=== PATIENT | male | born 1930 | race Caucasian/White ===

== ENCOUNTER 2017-11-02 08:22 | Day surgery (SDC) | payer MEDICARE, OTHER ==
[2017-10-28 11:37] VITALS: BMI 23.1
--- NOTE | 2017-11-02 05:14 | HP ---
HISTORY AND PHYSICAL CHIEF COMPLAINT: Perforation in the right tympanic membrane. HISTORY OF PRESENT ILLNESS: This patient is a very pleasant 87-year-old male who was seen in my office complaining of drainage from his right ear. The patient states that approximately 1 year prior to coming to my office, he was seen at the [facility]. At that time his ears were irrigated. Since that time, the right ear has been draining intermittently. We have seen this gentleman in the past for a slight perforation of the right tympanic membrane which closed spontaneously without any surgical intervention. He wears bilateral hearing aids. At the time that he was seen in the office, clinical examination of the right ear revealed a central perforation encompassing approximately 10-15% of the right tympanic membrane. The middle ear space was free of any cholesteatoma. The patient was placed on a course of Levaquin and Floxin ear drops in an attempt to see if the perforation would close. After approximately 3 weeks, it was noted that the perforation did not close and therefore it was recommended that the patient undergo a right insertion of a Kartush patch to a right tympanic membrane perforation under IV sedation with MAC. PAST MEDICAL HISTORY: Past medical history reveals that the patient has no known allergies to medications. MEDICATIONS: His current medications include allopurinol, valsartan, Areds, PreserVision, metoprolol, Colcrys, Tekturna and 1 baby aspirin daily. REVIEW OF SYSTEMS: Review of systems reveals cardiovascular system is positive for hypertension. The special symptoms is positive for macular degeneration. The remainder of the review of systems is unremarkable. PHYSICAL EXAMINATION: This patient is a very pleasant 87-year-old male who was alert and cooperative. HEENT examination: Patient is normocephalic. Examination of the left ear reveals a left tympanic membrane middle ear space is free of any fluid, infection or perforation. Examination right ear reveals the patient has a central perforation encompassing approximately 10-15% of the right tympanic membrane. The middle ear ossicles are intact. The middle ear space is dry and free of any infection or cholesteatoma. Pupils equal, round, react to light and accommodation. Extraocular movements within normal limits. Intranasal examination reveals moderate to severe septal deviation with compensatory hypertrophy of the inferior turbinates and a moderate amount of mucus on the mucous membranes and draining down the posterior pharynx. Palpation of the neck, cranial nerves 2 through 12 and the remainder of the head and neck exam is unremarkable. Chest: Cardiovascular: Both lung pelaez are clear to percussion and auscultation. Patient is in regular sinus rhythm. S1, S2 are present without evidence of murmurs, S3s or S4. Peripheral pulses are bilaterally symmetrical and within normal limits. ABDOMEN: There is no evidence of any masses, megaly, or tenderness. ABDOMEN: Soft. Skin is unremarkable. Musculoskeletal and neurological are within normal limits. Rectal examination exam is deferred at this time because the patient has this done on a regular basis at his family physician's office. The remainder of physical exam is unremarkable. IMPRESSION: Perforation of the right tympanic membrane. PLAN: The patient is scheduled to undergo insertion of a Kartush patch to a perforation of the right tympanic membrane under IV sedation with MAC in the a.m. Attention RNs in the pre-surgical area; I have not ordered any pre-surgical prophylactic antibiotics for this patient. If the pharmacy department sends any pre- surgical prophylactic antibiotics for this patient to the pre-surgical area, please return the medication to the pharmacy department and cancel that order and make sure that the patient's account is credited appropriately. I have discussed the risks, benefits and alternative therapies for the above-mentioned procedure and for both sedation/analgesia as well as necessary blood product administration, if indicated, as they pertain to this patient. The patient has indicated his or her understanding and acceptance of the risks and procedures discussed. MMODL / IJN: [id number] /
[~2017-11-02 08:22] MED LIST: LACTATED RINGERS 1,000 ML IV SCH; Pre Op ABX Message 1 EACH MISC MISCELLANE ONE
[2017-11-02 08:55] VITALS: RESP 16; TEMP 97.7
[2017-11-02] MEDS ORDERED: hydrALAZINE HCL 20 MG/ML 1 ML VIAL IVP ONE ×2 (09:02→09:30)
[2017-11-02] MEDS ORDERED: PROPOFOL 10 MG/ML 20 ML VIAL IV ONE (10:11)
[2017-11-02] MEDS ORDERED: fentaNYL (PF) 50 MCG/ML 2 ML AMP ONE (10:11)
[2017-11-02] MEDS ORDERED: OFLOXACIN 0.3% OPHTH DROPS 5 ML BOTTLE RIGHT EAR ONE ×2 (10:37)
[2017-11-02 11:18] VITALS: BP 164/78; PULSE 73
--- NOTE | 2017-11-02 22:48 | OP ---
OPERATIVE REPORT PREOPERATIVE DIAGNOSIS: Perforation of the right tympanic membrane. POSTOPERATIVE DIAGNOSIS: Perforation of the right tympanic membrane. ANESTHESIA: IV sedation with M.A.C. OPERATIVE PROCEDURE: Insertion of a 3 mm Kartush patch to a perforation of the right tympanic membrane. OPERATING SURGEON: Dr. Chacon. COMPLICATIONS: None. ESTIMATED BLOOD LOSS: Zero. OPERATIVE PROCEDURE DESCRIPTION: The patient was placed on the operating table in supine position. After uneventful IV sedation, satisfactory sedation was obtained. Next the patient's right ear was draped in the usual and customary fashion, following which using a #3 aural speculum and the Zeiss operating microscope, the right external auditory canal was cleansed of all wax and debris. Inspection of the right tympanic membrane revealed that it had an anterior perforation encompassing approximately 10% to 15% of the right tympanic membrane. The middle ear space was free of any fluid, infection or cholesteatoma. Therefore it was elected to insert a 3 mm Kartush patch in the usual and customary fashion. Care was taken to make sure that the Kartush patch was seated properly. At this point, the procedure was terminated. There were no intraoperative complications. The patient tolerated the procedure well and was returned to the recovery room in satisfactory condition. MMODL / IJN: [id number] /
== END 2017-11-02 11:35 | disposition home or self-care (01) ==
LOC: OR 08:22
PROVIDERS: ATTEND Otolaryngology
DX: H72.91 Unspecified perforation of tympanic membrane, right ear (principal); J34.2 Deviated nasal septum; J34.3 Hypertrophy of nasal turbinates; H35.30 Unspecified macular degeneration; I10 Essential (primary) hypertension; Z79.82 Long term (current) use of aspirin; Z79.899 Other long term (current) drug therapy
CPT/HCPCS: 69610; J0360; J3010; J2704

== ENCOUNTER 2018-11-26 09:09 | Day surgery (SDC) | payer MEDICARE, OTHER ==
[2018-11-19 15:24] VITALS: BMI 27.3
--- NOTE | 2018-11-25 23:05 | HP ---
HISTORY AND PHYSICAL CHIEF COMPLAINT: Perforation of the right tympanic membrane. HISTORY OF PRESENT ILLNESS: The patient is a very pleasant 88-year-old male who was recently seen in my office complaining of having drainage and decreased hearing in his right ear. The patient had previously undergone insertion of a right Kartush patch to a perforated right tympanic membrane approximately 1 year ago. At that time, he did see me in my office, clinical examination revealed he had purulent drainage coming from the right middle ear space and the patch had completely extruded. The patient was placed on 2 weeks of antibiotic ear drops and upon returning to the office for a checkup, it was noted that the ear was completely dry and it was recommended that the patch be reinserted so as to improve the function of his hearing aid. PAST MEDICAL HISTORY: Past medical history reveals that he has no known allergies. MEDICATIONS: Current medications: Allopurinol, valsartan, and Areds, PreserVision, metoprolol, Colcrys, Tekturna, baby aspirin daily. REVIEW OF SYSTEMS: Review of systems reveals the cardiovascular system is positive for hypertension and ASHD. Special senses is positive for macular degeneration. Musculoskeletal system is positive for gout. Remainder of review of systems is essentially unremarkable. PHYSICAL EXAMINATION: The patient is a very pleasant 88-year-old male who was alert and cooperative. HEENT exam: The patient is normocephalic. Left tympanic membrane is unremarkable. Examination of the right knee reveals patient has a small central perforation encompassing less than 10% of the right tympanic membrane. The middle ear space at this time is dry in the middle ear middle ear ossicles appear to be intact. Pupils equal, round, reactive to light and accommodation. Extraocular movements within normal limits. Intranasal examination reveals moderate to severe septal deviation with compensatory hypertrophy of the inferior turbinates and a moderate amount of mucus on the mucous membranes and draining down the posterior pharyngeal wall. Examination of the oropharynx, cranial nerves 2 through 12 and remainder of the head and neck exam are all within normal limits. Chest cardiovascular. Both lung pelaez are clear to percussion and auscultation. The patient is in regular sinus rhythm. S1 and S2 are present without evidence of any murmurs, S3s or S4s. Peripheral pulses are bilaterally symmetrical and within normal limits. ABDOMEN: There is no evidence of any masses, megaly or tenderness. Abdomen: Soft. Skin is unremarkable. Musculoskeletal and neurological all within normal limits. Rectal examination exam is deferred at this time because the patient has done on a regular basis at his family physician's office. The remainder of physical exam is essentially unremarkable. IMPRESSION: Perforation of the right tympanic membrane. PLAN: The patient is scheduled undergo insertion of a Kartush patch to a perforation of the right tympanic membrane under IV sedation with MAC. Attention RNs in the pre-surgical area: I have not ordered any pre-surgical medications or pre-surgical prophylactic antibiotics for this patient. If the pharmacy department sends any pre-surgical prophylactic antibiotics to the pre-surgical area for this patient, please cancel that order and return the medication to the pharmacy department. Also make sure that the patient's account is account is credited appropriately. I have discussed the risks, benefits and alternative therapies for the above-mentioned procedure and for both sedation/analgesia as well as necessary blood product administration, if indicated, as they pertain to this patient. The patient has indicated his or her understanding and acceptance of the risks and procedures discussed. MMODL / ALETHEAN: [id number] /
[~2018-11-26 09:09] MED LIST changes: +LIDOCAINE 1% 20 ML VIAL (10MG/ML) FOR IV START INTRADERMA PRN
[2018-11-26] MEDS ORDERED: fentaNYL (PF) 50 MCG/ML 2 ML AMP ONE (11:09)
[2018-11-26] MEDS ORDERED: PROPOFOL 10 MG/ML 20 ML VIAL IV ONE (11:09)
[2018-11-26] MEDS ORDERED: OFLOXACIN 0.3% OTIC DROPS 5 ML BTL RIGHT EAR ONE ×2 (11:27)
[2018-11-26 12:02] VITALS: TEMP 97.5
[2018-11-26 12:04] VITALS: RESP 16
[2018-11-26 13:03] VITALS: BP 166/76; PULSE 72
--- NOTE | 2018-11-29 23:16 | OP ---
OPERATIVE REPORT DATE OF SERVICE: 11/27/2018. PREOPERATIVE DIAGNOSIS: Perforation of the right tympanic membrane. POSTOPERATIVE DIAGNOSIS: Perforation of the right tympanic membrane. ANESTHESIA: IV sedation with M.A.C. OPERATIVE PROCEDURE: Insertion of a 5 mm Kartush patch to the perforation of the right tympanic membrane. OPERATING SURGEON: Dr. Chacon. COMPLICATIONS: None. ESTIMATED BLOOD LOSS: Zero. OPERATIVE PROCEDURE: The patient was placed on the operating table in supine position. After uneventful IV sedation, satisfactory sedation was obtained. Next the patient's right ear was draped in usual and customary fashion. Next, using the Zeiss operating microscope and a #4 aural speculum, the right external auditory canal was cleansed of all wax and debris. Inspection of the right tympanic membrane revealed a central perforation encompassing approximately 3 to 4 mm in diameter. Because a previously inserted 3 mm Kartush patch which seated exactly, had been easily extruded, it was elected to at this time insert a 5 mm Kartush patch. Therefore using a pair of alligator forceps, annulus elevator and a Gudino needle, the Kartush patch was inserted into the perforation and was carefully worked into the perforation so as to be well-seated around all of the edges. Care was taken to inspect the area after placement of the Kartush patch to make sure that it was well seated. At this point the procedure was terminated. There were no intraoperative complications. The patient tolerated the procedure well and was returned to the recovery room in satisfactory condition. MMTHOMASL / IJN: [id number] /
== END 2018-11-26 13:20 | disposition home or self-care (01) ==
LOC: OR 09:09
PROVIDERS: ATTEND Otolaryngology
DX: H72.91 Unspecified perforation of tympanic membrane, right ear (principal); I25.10 Atherosclerotic heart disease of native coronary artery without angina pectoris; I10 Essential (primary) hypertension; H35.30 Unspecified macular degeneration; M10.9 Gout, unspecified; E78.5 Hyperlipidemia, unspecified; Z87.891 Personal history of nicotine dependence; Z85.828 Personal history of other malignant neoplasm of skin; Z79.82 Long term (current) use of aspirin; Z79.899 Other long term (current) drug therapy
CPT/HCPCS: 69610; J3010; J2704

== ENCOUNTER → 2019-04-27 | Outpatient (CLI) | payer MEDICARE, OTHER ==
--- NOTE | 2019-04-28 00:34 | MR ---
EXAMINATION TYPE: MR lumbar spine wo con DATE OF EXAM: 04/27/2019 COMPARISON: 06/11/2011 HISTORY: Radiculopathy, lumbar region TECHNIQUE: Multiplanar, multisequence images of the lumbar spine were acquired. Lumbar vertebra have normal alignment. There is some degenerative disc space narrowing throughout the lumbar spine and more noticeable at L2-3 L4-5 and L5-S1. There is no compression fracture. I see no focal bone destruction. There is mild hypertrophic multilevel facet arthropathy. There is some ankylo tic change in the sacroiliac joints. There is no lumbar paraspinal mass. There are multiple cortical cysts in the left kidney. There is mild neural foraminal narrowing due to the disc space narrowing an d facet arthropathy. There is no spinal stenosis. Posterior elements appear intact. IMPRESSION: Mild multilevel spondylotic changes. No fracture. 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 No spin al stenosis. No fracture. No significant change compared to old exam.
== END | disposition home or self-care (01) ==
LOC: RADMRIMAIN 19:25
PROVIDERS: ATTEND Family Medicine
DX: M47.26 Other spondylosis with radiculopathy, lumbar region (principal)
CPT/HCPCS: 72148

== ENCOUNTER 2019-09-25 12:18 | Observation (INO) | payer MEDICARE, OTHER ==
[2019-09-25] MEDS ORDERED: ASPIRIN 81 MG PO STA (13:17)
[2019-09-25] MEDS ORDERED: NITROGLYCERIN OINT 1 INCH/GM PACKET TOPICAL STA (13:17)
--- NOTE | 2019-09-25 13:24 | ED ---
Chest Pain HPI - General Chief Complaint: Chest Pain Stated Complaint: Chest pain/tightness Time Seen by Provider: 09/25/19 12:24 Source: patient, family, RN notes reviewed Mode of arrival: wheelchair Limitations: no limitations - History of Present Illness Initial Comments: This 88-year-old male. He states he had the onset of some chest pain yesterday and resolved but this morning he woke up with more chest pain and tightness. Is also some pain up into his left neck. He also shortness of breath he states the pain was partially 4-5/10 severity. He has had some increased pain with deep breathing and left-sided of his chest. No fevers chills nausea vomiting sweats or other symptoms MD Complaint: chest pain - Related Data Home Medications Medication Instructions Recorded Confirmed Allopurinol [Zyloprim] 300 mg PO DAILY 10/28/17 11/26/18 Aspirin 81 mg PO DAILY 10/28/17 11/26/18 Ergocalciferol (Vitamin D2) 50,000 unit PO Q7D 10/28/17 11/26/18 [Vitamin D2] Gemfibrozil [Lopid] 600 mg PO DAILY 10/28/17 11/26/18 Metoprolol Tartrate [Lopressor] 100 mg PO BID 10/28/17 11/26/18 Vitamin B Complex 1 each PO DAILY 10/28/17 11/26/18 Aliskiren Hemifumarate [Tekturna] 150 mg PO HS 11/19/18 11/26/18 Olmesartan Medoxomil 20 mg PO DAILY 11/19/18 11/26/18 Vit C/E/Zn/Coppr/Lutein/Zeaxan 1 each PO BID 11/19/18 11/26/18 [Preservision Areds 2 Softgel] amLODIPine BESYLATE [Norvasc] 10 mg PO HS 11/19/18 11/26/18 Allergies Allergy/AdvReac Type Severity Reaction Status Date / Time No Known Allergies Allergy Verified 09/25/19 12:22 Review of Systems ROS Statement: Those systems with pertinent positive or pertinent negative responses have been documented in the HPI. ROS Other: All systems not noted in ROS Statement are negative. EKG Findings - EKG Results: EKG: interpreted by GINETTE, sinus rhythm (Normal sinus rhythm a 73. Interval 174 QRS duration 96 QT since QTC 370/[address]-T wave changes) Past Medical History Past Medical History: Cancer, Eye Disorder, Hypertension, Osteoarthritis (OA), Prostate Disorder Additional Past Medical History / Comment(s): Contracted L hand,(dupuytren's contracture) Gout, Macular Degeneration, hx. skin cancer on his face, inner ear infections. History of Any Multi-Drug Resistant Organisms: None Reported Past Surgical History: Bowel Resection, Heart Catheterization, Hernia Repair, Orthopedic Surgery, Prostate Surgery Additional Past Surgical History / Comment(s): rt hand surgery. rt ear patch 2018, mult hernia's Past Anesthesia/Blood Transfusion Reactions: No Reported Reaction Past Psychological History: No Psychological Hx Reported Smoking Status: Former smoker - Past Family History Father Family Medical History: Cancer Additional Family Medical History / Comment(s): Lung General Exam - General Exam Comments Initial Comments: This a well-developed develop appearing male who is awake alert oriented 3 Limitations: no limitations General appearance: alert, in no apparent distress Head exam: Present: atraumatic, normocephalic, normal inspection Eye exam: Present: normal appearance, PERRL, EOMI. Absent: scleral icterus, conjunctival injection, periorbital swelling ENT exam: Present: normal exam, mucous membranes moist Neck exam: Present: normal inspection, tenderness, full ROM (Mild tenderness palpation on the left lateral neckpulsatile masses or JVD or bruits). Absent: meningismus, lymphadenopathy Respiratory exam: Present: normal lung sounds bilaterally, chest wall tenderness (Is a left lower costal chondral margin). Absent: respiratory distress, wheezes, rales, rhonchi, stridor Cardiovascular Exam: Present: regular rate, normal rhythm, normal heart sounds. Absent: systolic murmur, diastolic murmur, rubs, gallop, clicks GI/Abdominal exam: Present: soft, normal bowel sounds. Absent: distended, tenderness, guarding, rebound, rigid Extremities exam: Present: normal inspection, full ROM, normal capillary refill. Absent: tenderness, pedal edema, joint swelling, calf tenderness Back exam: Present: normal inspection Neurological exam: Present: alert, oriented X3, CN II-XII intact Psychiatric exam: Present: normal affect, normal mood Skin exam: Present: warm, dry, intact, normal color. Absent: rash Course Vital Signs 09/25/19 09/25/1920 12:22 13:00 14:00 Temperature 97.4 F L Pulse Rate 80 70 65 Respiratory 16 15 15 Rate Blood Pressure 153/85 132/74 138/71 O2 Sat by Pulse 95 94 L 94 L Oximetry 09/25/19 09/25/19 15:00 15:25 Temperature Pulse Rate 74 74 Respiratory 17 17 Rate Blood Pressure 136/75 136/75 O2 Sat by Pulse Oximetry - Reevaluation(s) Reevaluation #1: 09/25/19 15:39 Reevaluation the patient to the application of Nitropaste reveals a pain-free situation at this time. Chest Pain MDM - MDM Imaging shows no evidence of acute findings. I did discuss findings with patient family as well as with Dr. Vaz who is covering Dr. Guevara patient will be admitted with cardiology consultation presentation is consistent with unstable angina Critical Care Time Critical Care Time: Yes Critical Care Time: 31 minutes of critical care time which includes initial presentation with history physical labs x-rays multiple reevaluation the patient response to therapy discussed with patient family review of old charting Disposition Clinical Impression: Unstable angina pectoris, Chest pain Disposition: ADMITTED IP TO THIS [facility] Condition: Fair Referrals: Trent Armando MD [Primary Care Provider] - 1-2 days
[2019-09-25 13:34] LABS: Basophils # (A) 0.1 k/uL (0-0.2); Basophils % (A) 1 %; Eosinophils # (A) 0.1 k/uL (0-0.7); Eosinophils % (A) 1 %; HCT 53.9 % (39.0-53.0); HGB 17.3 gm/dL (13.0-17.5); Lymphocytes # (A) 1.2 k/uL (1.0-4.8); Lymphocytes % (A) 17 %; MCH 29.3 pg (25.0-35.0); MCHC 32.2 g/dL (31.0-37.0); MCV 91.1 fL (80.0-100.0); Mean Platelet Volume 8.1; Monocytes # (A) 0.4 k/uL (0-1.0); Monocytes % (A) 5 %; Neutrophils # (A) 5.4 k/uL (1.3-7.7); Neutrophils % (A) 75 %; Platelet Count 242 k/uL (150-450); RBC 5.91 m/uL (4.30-5.90); RDW 13.7 % (11.5-15.5); WBC 7.2 k/uL (3.8-10.6)
--- NOTE | 2019-09-25 13:36 | XR ---
EXAMINATION TYPE: XR chest 2V DATE OF EXAM: 09/25/2019 HISTORY: Chest Pain. REFERENCE: NONE. FINDINGS: There is left basilar airspace disease either representing atelectasis or IMPRESSION:
[2019-09-25 13:40] LABS: Albumin 4.4 g/dL (3.5-5.0); Calcium 10.2 mg/dL (8.4-10.2); Magnesium 2.2 mg/dL (1.6-2.3); Potassium 4.6 mmol/L (3.5-5.1); Total Bilirubin 0.8 mg/dL (0.2-1.3); Total Protein 7.2 g/dL (6.3-8.2)
[2019-09-25 13:46] LABS: D-Dimer 0.41 mg/L FEU (<0.60); Partial Thromboplastin Time 24.6 sec (22.0-30.0); Prothrombin Time 10.2 sec (9.0-12.0)
[2019-09-25] MEDS ORDERED: HEPARIN SODIUM,PORCINE 5,000 UNIT/ML 1 ML VIAL IV ONE (15:42)
[2019-09-25] MEDS ORDERED: NITROGLYCERIN SL TABS 0.4 MG TAB SUBLINGUAL PRN (15:42)
[2019-09-25] MEDS ORDERED: SODIUM CHLORIDE 0.9% 1,000 ML IV SCH (15:45)
[2019-09-25] MEDS ORDERED: HEPARIN SOD,PORK IN 0.45% NACL 25,000 UNIT in 0.45% NACL 1 250ML.BAG IV SCH (15:45)
[2019-09-25] MEDS ORDERED: FLUTICASONE 50MCG/SPRAY NASAL 16GM EA NOSTRIL PRN (18:17)
[2019-09-25] MEDS ORDERED: ACETAMINOPHEN TAB 325 MG TAB PO STA (20:07)
[2019-09-25] MEDS: VIT A,C & E-LUTEIN-MINERALS 1 EACH TAB PO SCH (20:44)
[2019-09-25] MEDS: METOPROLOL TARTRATE 50 MG TAB PO SCH (20:44)
[2019-09-25] MEDS: NITROGLYCERIN OINT 1 INCH/GM PACKET TOPICAL SCH (20:46)
[2019-09-25] MEDS ORDERED: amLODIPine 10 MG TAB PO SCH (21:00)
[2019-09-25 22:55] LABS: Appearance,Urine Clear (Clear); Bilirubin,Urine Negative (Negative); Blood,Urine Negative (Negative); Color,Urine Yellow; Glucose,Urine (UA) Negative (Negative); Ketones,Urine Negative (Negative); Leukocyte Esterase,Urine Negative (Negative); Nitrite,Urine Negative (Negative); PH, Urine 5.5 (5.0-8.0); Protein,Urine Trace (Negative); Specific Gravity,Urine 1.016 (1.001-1.035); Urobilinogen,Urine <2.0 mg/dL (<2.0)
[2019-09-26] MEDS: NITROGLYCERIN OINT 1 INCH/GM PACKET TOPICAL SCH ×2 (01:26→05:31)
--- NOTE | 2019-09-26 07:57 | HP ---
HISTORY AND PHYSICAL DATE OF SERVICE: 10/15/2019 CHIEF COMPLAINT: Chest pain. HISTORY OF PRESENT ILLNESS: This is an 88-year-old gentleman with a past medical history of multiple medical problems including hypertension, history of DJD, history of prostate disorder, history of bowel resection, being followed by Antoni Bagley in the outpatient setting, is complaining of chest pain. The patient had chest pain, antepartum chest pain yesterday, but patient pained resolved. This morning patient woke up again, the pain was felt as a tightness in the middle of the chest which radiated to the left neck and the back. The patient also has some associated cough also. The patient is not feeling well and because of multiple complaints, patient came to [facility], admitted for further evaluation and treatment. There is no history of fever, chills, or rigors. No history of headache, loss of consciousness, seizures at this time. PAST MEDICAL HISTORY: History of hypertension, history of DJD, history of prostate disorder, history of Dupuytren's contracture, history of bowel resection, history of cardiac catheterization. MEDICATIONS: 1. Benadryl 25 mg p.o. q.h.s. 2. Norvasc 10 mg p.o. q.h.s. 3. Vitamin B complex 1 p.o. q.h.s. 4. Vitamin C zinc copper lutein 1 p.o. b.i.d. 5. Lopressor 100 mg p.o. b.i.d. 6. Claritin 10 mg p.o. daily. 7. Lopid 600 mg p.o. daily. 8. Flonase 2 sprays daily p.r.n. 9. Vitamin D2 fifty thousand p.o. Thursday. 10.Aspirin 81 mg q.h.s. 11.Zyloprim 300 mg p.o. daily. 12.Tekturna 150 mg q.h.s. ALLERGIES: None. FAMILY HISTORY: History of lung cancer in the family. SOCIAL HISTORY: Previous history of smoking. No history of current smoking or alcohol intake. REVIEW OF SYSTEMS: ENT: Diminished vision. Diminished hearing. CARDIOVASCULAR SYSTEM: As mentioned earlier. RESPIRATORY: As mentioned earlier. GI: No nausea. : No dysuria. NERVOUS SYSTEM: No numbness or weakness. ALLERGY/IMMUNOLOGY: No asthma or hay fever. MUSCULOSKELETAL: As mentioned earlier. HEMATOLOGY: No history of anemia. ENDOCRINE: No history of diabetes or hypothyroidism. CONSTITUTIONAL: As mentioned earlier. DERMATOLOGY: Negative. RHEUMATOLOGY: Negative. PSYCHIATRY: As mentioned earlier. PHYSICAL EXAM: Patient is alert, oriented x3. The pulse is 80, blood pressure 130/86, respiration 18, temperature 97.2, pulse ox 95% on 2 L. HEENT: Conjunctivae normal. NECK: No jugular venous distension. CARDIOVASCULAR SYSTEM: S1, S2, muffled. RESPIRATORY: Breath sounds diminished at the bases, a few scattered rhonchi, no crackles. ABDOMEN: Soft, nontender. No mass palpable. LEGS: No edema, no swelling. NERVOUS SYSTEM: Higher functions as mentioned earlier. Moves all 4 limbs. No focal motor deficits. LYMPHATICS: No lymph node enlargement in the neck or axillae. SKIN: No ulcers, bleeding. JOINT: No active deforming arthropathy. LABS: WBC is 1.8, hemoglobin 17.3. PT, INR, and PTT is normal. Sodium 140, potassium 4.2, glucose 125, alkaline phosphatase 150. ASSESSMENT: 1. Chest pain, possible unstable angina, possibly pleuritic. 2. Hypertension. 3. History of degenerative joint disease. 4. History of Dupuytren's contracture. 5. History of gout. 6. Macular degeneration. 7. History of cardiac catheterization. 8. Remote history of nicotine dependence. RECOMMENDATION: In this 88-year-old gentleman who presented with multiple complex medical issues, will monitor the patient closely. Continue with the current management and resume the home medications, otherwise symptomatic treatment. Rule out myocardial infarction. Cardiology consultation, possible stress test. If the troponins are negative and further recommendations to follow, The EKG which was done, reviewed personally by me showed no acute changes. Further recommendations to follow. MMODL / IJN: [id number] /
[2019-09-26 08:25] LABS: Basophils % (A) 1 %; Eosinophils # (A) 0.1 k/uL (0-0.7); Eosinophils % (A) 2 %; HCT 49.2 % (39.0-53.0); HGB 15.6 gm/dL (13.0-17.5); Lymphocytes % (A) 28 %; MCH 28.6 pg (25.0-35.0); MCHC 31.7 g/dL (31.0-37.0); MCV 90.4 fL (80.0-100.0); Monocytes # (A) 0.3 k/uL (0-1.0); Monocytes % (A) 4 %; Neutrophils # (A) 4.7 k/uL (1.3-7.7); Neutrophils % (A) 64 %; Platelet Count 212 k/uL (150-450); RBC 5.45 m/uL (4.30-5.90); RDW 13.6 % (11.5-15.5); WBC 7.3 k/uL (3.8-10.6)
[2019-09-26] MEDS ORDERED: AMINOPHYLLINE 500 MG/20 ML VIAL IV PRN (08:26)
[2019-09-26] MEDS ORDERED: CAFFEINE CITRATE 60 MG/3 ML VIAL IV PRN (08:26)
[2019-09-26] MEDS ORDERED: DIPYRIDAMOLE IV ONE (08:30)
[2019-09-26] MEDS ORDERED: SODIUM CHLORIDE 0.9% IV ONE (08:30)
--- NOTE | 2019-09-26 08:59 | P.CRDCN ---
History of Present Illness History of present illness: HISTORY OF PRESENTING ILLNESS This is a pleasant 88-year-old male past medical history significant for hypertension, osteoarthritis, history of bowel resection in the past and macular degeneration. He is also extremely hard of hearing. He denies prior history of coronary artery disease does not follow in the office with a tobacco prizer. We have been asked to see in consultation for chest pain. He states he was up most of the night on Thursday with a dry persistent cough. He woke up Thursday with a heavy pressure sensation in the upper anterior chest wall. The discomfort did not radiate through to the back, down the arms, into the neck or the jaw. Was not associated with shortness of breath, dizziness, nausea, vomiting, diaphoresis or palpitations. The cough did not precipitate chest pain. His symptoms lasted for about 45 minutes on Thursday morning and slowly subsided on their own. He has had no recurrence of chest pain. The patient states approximately 8-10 years ago and bad ax he underwent cardiac catheterization prior to bowel resection surgery. Per the patient his study was normal and required no stenting. DIAGNOSTICS EKG reveals sinus mechanism with no acute ST or T wave abnormalities noted. Chest xray left basilar airspace disease. Laboratory reviewed, CBC unremarkable, troponin negative 3, d-dimer 0.41, sodium 140, potassium 4.6, creatinine 0.93, alkaline phosphate 150. Current cardiac medications include aspirin 81 mg daily, Lopid 600 mg daily, Lopressor 100 mg twice a day and amlodipine 10 mg at bedtime. REVIEW OF SYSTEMS At the time of my exam: CONSTITUTIONAL: Denies fever or chills. CARDIOVASCULAR: Denies chest pain, shortness of breath, orthopnea, PND or palpitations. RESPIRATORY: Denies cough. GASTROINTESTINAL: Denies abdominal pain, diarrhea, constipation, nausea or vomiting. MUSCULOSKELETAL: Denies myalgias. NEUROLOGIC: Denies numbness, tingling or weakness. ENDOCRINE: Denies fatigue, weight change, polydipsia or polyurina. GENITOURINARY: Denies burning, hematuria or urgency with micturation. HEMATOLOGIC: Denies history of anemia or bleeding. PHYSICAL EXAMINATION Blood pressure 150/66 heart rate 84 afebrile and maintaining oxygen saturation on male. CONSTITUTIONAL: No apparent distress. HEENT: Head is normocephalic. Pupils are equal, round. Sclerae anicteric. Mucous membranes of the mouth are moist. No JVD. No carotid bruit. CHEST EXAMINATION: Lungs are clear to auscultation. No chest wall tenderness is noted on palpation or with deep breathing. HEART EXAMINATION: Regular rate and rhythm. S1, S2 heard. Systolic ejection murmur at the left sternal border, no gallops or rub. ABDOMEN: Soft, nontender. Positive bowel sounds. EXTREMITIES: 2+ peripheral pulses, no lower extremity edema and no calf tenderness. NEUROLOGIC EXAMINATION: Patient is awake, alert and oriented x3. ASSESSMENT Chest pain, atypical. An acute coronary event has been ruled out. Hypertension PLAN An acute coronary event has been ruled out. Discontinue heparin infusion. Obtain 2-D echocardiogram and Doppler study to assess cardiac structure and function. Perform Persantine stress test to assess for reversible cardiac ischemia. Continue Lopressor, aspirin, amlodipine and losartan for control of blood pres sure. Thank you kindly for this consultation. Nurse Practitioner note has been reviewed, I agree with a documented findings and plan of care. Patient was seen and examined. Past Medical History Past Medical History: Cancer, Eye Disorder, Hypertension, Osteoarthritis (OA), Prostate Disorder Additional Past Medical History / Comment(s): Contracted L hand,(dupuytren's contracture) Gout, Macular Degeneration, hx. skin cancer on his face, inner ear infections. History of Any Multi-Drug Resistant Organisms: None Reported Past Surgical History: Bowel Resection, Heart Catheterization, Hernia Repair, Orthopedic Surgery, Prostate Surgery Additional Past Surgical History / Comment(s): rt hand surgery. rt ear patch 2018, mult hernia's Past Anesthesia/Blood Transfusion Reactions: No Reported Reaction Past Psychological History: No Psychological Hx Reported Smoking Status: Former smoker Past Alcohol Use History: None Reported Additional Past Alcohol Use History / Comment(s): Quit smoking 30 years ago. Past Drug Use History: None Reported - Past Family History Father Family Medical History: Cancer Additional Family Medical History / Comment(s): Lung Medications and Allergies Home Medications Medication Instructions Recorded Confirmed Type Allopurinol [Zyloprim] 300 mg PO DAILY 10/28/17 09/25/19 History Aspirin 81 mg PO HS 10/28/17 09/25/19 History Ergocalciferol (Vitamin D2) 50,000 unit PO SA 10/28/17 09/25/19 History [Vitamin D2] Gemfibrozil [Lopid] 600 mg PO DAILY 10/28/17 09/25/19 History Metoprolol Tartrate [Lopressor] 100 mg PO BID 10/28/17 09/25/19 History Vitamin B Complex 1 cap PO HS 10/28/17 09/25/19 History Aliskiren Hemifumarate [Tekturna] 150 mg PO HS 11/19/18 09/25/19 History Vit C/E/Zn/Coppr/Lutein/Zeaxan 1 cap PO BID 11/19/18 09/25/19 History [Preservision Areds 2 Softgel] amLODIPine BESYLATE [Norvasc] 10 mg PO HS 11/19/18 09/25/19 History Fluticasone Nasal [place] [Flonase 2 sprays EA NOSTRIL DAILY PRN 09/25/19 09/25/19 History Nasal [place]] Loratadine [Claritin] 10 mg PO DAILY 09/25/19 09/25/19 History diphenhydrAMINE HCL [Benadryl] 25 mg PO HS 09/25/19 09/25/19 History Allergies Allergy/AdvReac Type Severity Reaction Status Date / Time No Known Allergies Allergy Verified 09/25/19 15:54 Physical Exam Vitals: Vital Signs Temp Pulse Pulse Pulse Resp BP BP 09/26/19 07:00 97.8 F 84 17 09/26/19 06:54 09/26/19 04:00 97.9 F 69 16 138/76 09/25/19 23:48 98.1 F 69 17 131/66 09/25/19 23:35 18 09/25/19 19:45 94 16 09/25/19 19:26 97.9 F 94 16 152/80 09/25/19 17:49 97.2 F L 90 16 154/78 09/25/19 16:57 80 18 138/86 09/25/19 16:00 73 20 142/74 09/25/19 15:25 74 17 136/75 09/25/19 15:00 74 17 136/75 09/25/19 14:00 65 15 138/71 09/25/19 13:00 70 15 132/74 09/25/19 12:22 97.4 F L 80 16 153/85 BP Pulse Ox 09/26/19 07:00 150/66 93 L 09/26/19 06:54 93 L 09/26/19 04:00 97 09/25/19 23:48 99 09/25/19 23:35 09/25/19 19:45 09/25/19 19:26 97 09/25/19 17:49 94 L 09/25/19 16:57 2 L 09/25/19 16:00 09/25/19 15:25 09/25/19 15:00 09/25/19 14:00 94 L 09/25/19 13:00 94 L 09/25/19 12:22 95 Intake and Output 09/25/19 09/26/19 09/26/19 22:59 06:59 14:59 Intake Total 960 Output Total 600 Balance 960 -600 Intake: Oral 960 Output: Urine 600 Other: Voiding Method Toilet Toilet Toilet # Voids 1 1 Weight 70.307 kg 67.9 kg Results 09/26/19 07:30 09/25/19 12:38 Cardiac Enzymes 09/25/19 09/25/19 09/25/19 Range/Units 12:38 12:38 18:51 AST 33 (17-59) U/L Troponin I <0.012 <0.012 (0.000-0.034) ng/mL 09/26/19 Range/Units 00:43 AST (17-59) U/L Troponin I <0.012 (0.000-0.034) ng/mL Coagulation 09/25/19 09/25/19 09/26/19 Range/Units 12:38 22:22 07:30 PT 10.2 (9.0-12.0) sec APTT 24.6 61.0 H 77.1 H (22.0-30.0) sec CBC 09/25/19 09/26/19 Range/Units 12:38 07:30 WBC 7.2 7.3 (3.8-10.6) k/uL RBC 5.91 H 5.45 (4.30-5.90) m/uL Hgb 17.3 15.6 (13.0-17.5) gm/dL Hct 53.9 H 49.2 (39.0-53.0) % Plt Count 242 212 (150-450) k/uL Comprehensive Metabolic Panel 09/25/19 Range/Units 12:38 Sodium 140 (137-145) mmol/L Potassium 4.6 (3.5-5.1) mmol/L Chloride 105 (98-107) mmol/L Carbon Dioxide 25 (22-30) mmol/L BUN 15 (9-20) mg/dL Creatinine 0.93 (0.66-1.25) mg/dL Glucose 125 H (74-99) mg/dL Calcium 10.2 (8.4-10.2) mg/dL AST 33 (17-59) U/L ALT 20 (4-49) U/L Alkaline Phosphatase 150 H (38-126) U/L Total Protein 7.2 (6.3-8.2) g/dL Albumin 4.4 (3.5-5.0) g/dL Current Medications Generic Name Dose Route Start Last Admin Trade Name Freq PRN Reason Stop Dose Admin Allopurinol 300 mg 09/26/19 09:00 Zyloprim PO DAILY [facility] Aminophylline 100 mg 09/26/19 08:26 Aminophylline IV 09/27/19 08:27 ONCE PRN Patient Response Amlodipine Besylate 10 mg 09/25/19 21:00 09/25/19 20:44 Norvasc PO 10 mg HS LJ Administration Aspirin 81 mg 09/26/19 09:00 Aspirin PO DAILY [facility] Caffeine Citrate 60 mg 09/26/19 08:26 Cafcit Inj IV 09/27/19 08:27 ONCE PRN Patient Response Fenofibrate 160 mg 09/26/19 09:00 Lofibra PO DAILY [facility] Fluticasone Propionate 2 spray 09/25/19 18:17 Flonase Nasal [place] EA NOSTRIL DAILY PRN Allergy Symptoms Sodium Chloride 1,000 mls @ 20 mls/hr 09/25/19 15:45 09/25/19 16:46 Saline 0.9% IV 20 mls/hr .Q24H LJ Administration Loratadine 10 mg 09/26/19 09:00 Claritin PO DAILY [facility] Losartan Potassium 100 mg 09/26/19 09:00 Cozaar PO DAILY [facility] Metoprolol Tartrate 100 mg 09/25/19 21:00 09/25/19 20:44 Lopressor PO 100 mg BID LJ Administration Multivitamins/Minerals 1 each 09/25/19 21:00 09/25/19 20:44 Ivite PO 1 each BID LJ Administration Nitroglycerin 0.4 mg 09/25/19 15:42 Nitrostat SUBLINGUAL Q5M PRN Chest Pain Aliskiren 150 mg 09/25/19 21:00 09/25/19 22:14 Hemifumarate [ PO Not Given Tekturna] 150 Mg HS LJ Intake and Output 09/25/19 09/26/19 09/26/19 22:59 06:59 14:59 Intake Total 960 Output Total 600 Balance 960 -600 Intake: Oral 960 Output: Urine 600 Other: Voiding Method Toilet Toilet Toilet # Voids 1 1 Weight 70.307 kg 67.9 kg 09/26/19 07:30 09/25/19 12:38
[2019-09-26] MEDS ORDERED: ASPIRIN 325 MG TAB PO SCH (09:00)
[2019-09-26] MEDS ORDERED: ASPIRIN 81 MG PO SCH (09:00)
[2019-09-26] MEDS ORDERED: FENOFIBRATE 160 MG TAB PO SCH (09:00)
[2019-09-26] MEDS ORDERED: LORATADINE 10 MG TAB PO SCH (09:00)
[2019-09-26] MEDS ORDERED: LOSARTAN 50 MG TAB PO SCH (09:00)
[2019-09-26] MEDS ORDERED: ALLOPURINOL 300 MG TAB PO SCH (09:00)
[2019-09-26] MEDS: VIT A,C & E-LUTEIN-MINERALS 1 EACH TAB PO SCH (09:13)
[2019-09-26 09:47] LABS: Calcium 9.5 mg/dL (8.4-10.2); Potassium 4.1 mmol/L (3.5-5.1)
[2019-09-26] MEDS: METOPROLOL TARTRATE 50 MG TAB PO SCH (12:53)
[2019-09-26 12:59] VITALS: BP 164/79; PULSE 104; RESP 18; TEMP 97.4
--- NOTE | 2019-09-26 13:25 | NM ---
EXAMINATION TYPE: NM stress persantine cardiolit DATE OF EXAM: 09/26/2019 COMPARISON: NONE HISTORY: Chest pain TECHNIQUE: After the intravenous administration of 9.4 mCi Tc 99m Sestamibi - Cardiolite resting SPE CT images acquired 55 minutes post injection. The patient received 39 mg Persantine, 27.2 mCi Tc 99m Sestamibi - Stress images obtained 45 minutes post injection FINDINGS: Review of stress and rest SPECT images demonstrates no distinct perfusion abnormality. Gated analysi s shows normal wall motion with an estimated left ventricular ejection fraction of 74 %. IMPRESSION: No scintigraphic evidence for reversible ischemia.
--- NOTE | 2019-09-26 14:46 | P.DS ---
Providers Date of admission: 09/25/19 15:42 Expected date of discharge: 09/26/19 Attending physician: Trent Armando MD Consults: 09/25/19 15:42 Consult Physician Urgent Consulting Provider: Glenny Burkett Consult Reason/Comments: Chest pain Do you want consulting provider notified?: Yes Primary care physician: Trent Armando MD Hospital Course: Final diagnoses Chest pain, atypical. Acute coronary event ruled out as per cardiology. Hypertension Macular degeneration Former nicotine dependence OA Hospital course this is a 80-year-old gentleman admitted with chest pain and multiple other medical issues. Evaluated by cardiology, underwent Persantine stress test- verbally reported as negative. Cleared by cardiology for discharge. Patient is being discharged home in stable condition with guarded prognosis. EXAM: GEN: A&OX3,NAD CV reg S1,S2, Sys. [place] LUNGS: CTA NEURO:NO neuro def. The impression and plan of care has been dictated as directed. : I performed a history and examination of this patient, discussed the same with the dictator. I agree with the dictator's note ,documented as a scribe. Any additional findings or plans will be noted. Patient Condition at Discharge: Stable Plan - Discharge Summary New Discharge Prescriptions: New Losartan [Cozaar] 100 mg PO DAILY tab Continue Metoprolol Tartrate [Lopressor] 100 mg PO BID Aspirin 81 mg PO HS Gemfibrozil [Lopid] 600 mg PO DAILY Allopurinol [Zyloprim] 300 mg PO DAILY Vitamin B Complex 1 cap PO HS Ergocalciferol (Vitamin D2) [Vitamin D2] 50,000 unit PO SA Alisk[place]ren Hemifumarate [Tekturna] 150 mg PO HS amLODIPine BESYLATE [Norvasc] 10 mg PO HS Vit C/E/Zn/Coppr/Lutein/Zeaxan [Preservision Areds 2 Softgel] 1 cap PO BID diphenhydrAMINE HCL [Benadryl] 25 mg PO HS Fluticasone Nasal [place] [Flonase Nasal [place]] 2 sprays EA NOSTRIL DAILY PRN PRN Reason: Allergy Symptoms Loratadine [Claritin] 10 mg PO DAILY Discharge Medication List Allopurinol [Zyloprim] 300 mg PO DAILY 10/28/17 [History] Aspirin 81 mg PO HS 10/28/17 [History] Ergocalciferol (Vitamin D2) [Vitamin D2] 50,000 unit PO SA 10/28/17 [History] Gemfibrozil [Lopid] 600 mg PO DAILY 10/28/17 [History] Metoprolol Tartrate [Lopressor] 100 mg PO BID 10/28/17 [History] Vitamin B Complex 1 cap PO HS 10/28/17 [History] Aliskiren Hemifumarate [Tekturna] 150 mg PO HS 11/19/18 [History] Vit C/E/Zn/Coppr/Lutein/Zeaxan [Preservision Areds 2 Softgel] 1 cap PO BID 11/19/18 [History] amLODIPine BESYLATE [Norvasc] 10 mg PO HS 11/19/18 [History] Fluticasone Nasal [place] [Flonase Nasal [place]] 2 sprays EA NOSTRIL DAILY PRN 09/25/19 [History] Loratadine [Claritin] 10 mg PO DAILY 09/25/19 [History] diphenhydrAMINE HCL [Benadryl] 25 mg PO HS 09/25/19 [History] Losartan [Cozaar] 100 mg PO DAILY tab 09/26/19 [Rx] Follow up Appointment(s)/Referral(s): Citlaly Savage MD [STAFF PHYSICIAN] - 2 Weeks Trent Armando MD [Primary Care Provider] - 1-2 days
--- NOTE | 2019-09-27 10:31 | EST ---
EXERCISE STRESS AGE: 89 SEX: M PROTOCOL: Persantine Stress Test HEART RATE REST: 91 BLOOD PRESSURE REST: 157/70 MAXIMUM HEART RATE ACHIEVED: 100 MAXIMUM BLOOD PRESSURE: 160/65 CLINICAL INFORMATION: Persantine stress test baseline EKG revealed normal sinus rhythm without significant ST changes. With Persantine administration, heart rate changed from 91 to I 100 beats per minute blood pressure changed from 157/70 to 160/64. EKG remained unremarkable. Patient did not have any major significant symptoms. By EKG criteria, this is unremarkable Lexiscan stress test. The nuclear scan results which are more pertinent will be reported by the radiologist. MMODL / IJN: [id number] /
--- NOTE | 2019-09-30 08:18 | ECHOF ---
Referral Reason: MEASUREMENTS -------- HEIGHT: 142.2 cm WEIGHT: 67.6 kg BP: 150/66 RVIDd: 2.7 cm (< 3.3) IVSd: 1.5 cm (0.6 - 1.1) LVIDd: 3.3 cm (3.9 - 5.3) LVPWd: 1.5 cm (0.6 - 1.1) IVSs: 1.9 cm LVIDs: 1.7 cm LVPWs: 1.7 cm LAESV Index (A-L): 28.46 ml/m Ao Diam: 2.5 cm (2.0 - 3.7) AV Cusp: 1.2 cm (1.5 - 2.6) LA Diam: 4.0 cm (2.7 - 3.8) MV EXCURSION: 11.243 mm (> 18.000) MV EF SLOPE: 46 mm/s (70 - 150) EPSS: 0.5 cm MV E Casa: 0.73 m/s MV DecT: 166 ms MV A Casa: 1.19 m/s MV E/A Ratio: 0.61 AR PHT: 365 ms RAP: 5.00 mmHg RVSP: 41.00 mmHg FINDINGS -------- Sinus rhythm. This was a technically adequate study. The left ventricular size is normal. There is moderate concentric left ventricular hypertrophy. O verall left ventricular systolic function is normal with, an EF between 55 - 60 %. The diastolic fi lling pattern is normal for the age of the patient 15.58. The right ventricle is normal in size. Normal LA size by volume 22+/-6 ml/m2. The right atrial size is normal. Interatrial and interventricular septum intact. The aortic valve is trileaflet and appears structurally normal. There is mild aortic valve sclerosi s. Trace amount of aortic regurgitation. There is no evidence of aortic stenosis. There is trace mitral regurgitation. Mild tricuspid regurgitation present. There is mild to moderate pulmonary hypertension. The right ventricular systolic pressure, as measured by Doppler, is 41.00mmHg. Trace/mild (physiologic) pulmonic regurgitation. The aortic root size is normal. IVC Not well visulized. There is no pericardial effusion. CONCLUSIONS -------- 1. Sinus rhythm. 2. This was a technically adequate study. 3. The left ventricular size is normal. 4. There is moderate concentric left ventricular hypertrophy. 5. Overall left ventricular systolic function is normal with, an EF between 55 - 60 %. 6. The diastolic filling pattern is normal for the age of the patient 15.58 7. The right ventricle is normal in size. 8. Normal LA size by volume 22+/-6 ml/m2. 9. The right atrial size is normal. 10. Interatrial and interventricular septum intact. 11. The aortic valve is trileaflet and appears structurally normal. 12. There is mild aortic valve sclerosis. 13. Trace amount of aortic regurgitation. 14. There is no evidence of aortic stenosis. 15. There is trace mitral regurgitation. 16. Mild tricuspid regurgitation present. 17. There is mild to moderate pulmonary hypertension. 18. The right ventricular systolic pressure, as measured by Doppler, is 41.00mmHg. 19. Trace/mild (physiologic) pulmonic regurgitation. 20. The aortic root size is normal. 21. IVC Not well visulized. 22. There is no pericardial effusion. DIRECTOR OF ENTERPRISE STRATEGY: Inez Romero RDCS
== END 2019-09-26 15:23 | disposition home or self-care (01) ==
LOC: EC 12:18 → 1SOBS 15:42
PROVIDERS: ADMIT Family Medicine; ATTEND Family Medicine
DX: R07.89 Other chest pain (principal); I10 Essential (primary) hypertension; H35.30 Unspecified macular degeneration; M19.90 Unspecified osteoarthritis, unspecified site; Z87.891 Personal history of nicotine dependence; M10.9 Gout, unspecified; H91.90 Unspecified hearing loss, unspecified ear; I08.2 Rheumatic disorders of both aortic and tricuspid valves; I27.20 Pulmonary hypertension, unspecified; Z79.899 Other long term (current) drug therapy; Z79.82 Long term (current) use of aspirin; Z85.828 Personal history of other malignant neoplasm of skin; Z87.438 Personal history of other diseases of male genital organs; Z87.39 Personal history of other diseases of the musculoskeletal system and connective tissue; Z86.19 Personal history of other infectious and parasitic diseases; Z90.49 Acquired absence of other specified parts of digestive tract; Z98.890 Other specified postprocedural states; Z80.1 Family history of malignant neoplasm of trachea, bronchus and lung
CPT/HCPCS: 93005 ×2; 96366 ×2; 96365; 99291; 36415; 93017; 93306; 85379; 83880; 80061; 80053; 80048; 82550; 83690; 83735; 84484 ×2; 85025 ×2; 85610; 85730 ×2; 81003; 71046; 78452; G0378 ×2; A9500; J1644 ×2; J1245

== ENCOUNTER 2019-10-28 22:08 | Inpatient (IN) | payer MEDICARE, OTHER ==
[2019-10-28] MEDS ORDERED: SODIUM CHLORIDE 0.9% 1,000 ML IV STA (22:11)
--- NOTE | 2019-10-28 22:30 | ED ---
General Adult HPI - General Chief complaint: GI Bleed Stated complaint: Rectal bleed Time Seen by Provider: 10/28/19 22:11 Source: patient, family, EMS Mode of arrival: EMS Limitations: no limitations - History of Present Illness Initial comments: Dictation was produced using [employer] dictation software. please excuse any grammatical, word or spelling errors. Chief Complaint: 89-year-old male presents with GI bleed History of Present Illness: A 89-year-old male who has past medical history of significant GI bleed and bright red blood per rectum. He is being admitted to the intensive care unit multiple times in the past for acute blood loss anemia secondary to GI bleed. Patient is accompanied by family member. Today he was noted to have red blood per rectum seen in the toilet. Patient to flush the toilet before we could see, so blood was lost. Patient denies abdominal pain or fever, chills or night sweats. Patient denies any lightheadedness. The ROS documented in this emergency department record has been reviewed and confirmed by me. Those systems with pertinent positive or negative responses have been documented in the HPI. All other systems are other negative and/or noncontributory. PHYSICAL EXAM: General Impression: Alert and oriented x3, not in acute distress HEENT: Normocephalic atraumatic, extra-ocular movements intact, pupils equal and reactive to light bilaterally, mucous membranes moist. Cardiovascular: Heart regular rate and rhythm, S1&S2 audible, no murmurs, rubs or gallops Chest: Lungs clear to auscultation bilaterally, no rhonchi, no wheeze, no rales Abdomen: Bowel sounds present, abdomen soft, non-tender, non-distended, no organomegaly Musculoskeletal: Pulses present and equal in all extremities, no peripheral edema Motor: no focal deficits noted Neurological: CN II-XII grossly intact, no focal motor or sensory deficits noted Skin: Intact with no visualized rashes Psych: Normal affect and mood Rectal exam: Bright red blood with digital rectal exam, no signs of hemorrhoids or rectal masses. ED course: 89-year-old male with past medical history of significant GI bleeds presents with GI bleed times one day. Signs upon arrival are within acceptable limits. Laboratory evaluation obtained. No leukocytosis. Coag panel unremarkable. Metabolic panel shows findings within acceptable limits. There is a lactic acidosis of 2.3. Stool occult blood is positive. Patient reevaluated bedside finally stable medical condition he hasn't had no other episodes of prior blood per rectum. Given patient's history of acute blood loss anemia that patient needed for observation with GI on consultation. Patient will be admitted to [facility] hospitalist group. Medications reviewed. Patient given 40 mg of IV Protonix. EKG interpretation: Ventricular rate 97, normal sinus rhythm,. 156, QRS 78, QTC 429. No FL prolongation, no QTC prolongation, no ST or T-wave changes noted. . Overall, this EKG is unremarkable - Related Data Home Medications Medication Instructions Recorded Confirmed Allopurinol [Zyloprim] 300 mg PO DAILY 10/28/17 09/25/19 Aspirin 81 mg PO HS 10/28/17 09/25/19 Ergocalciferol (Vitamin D2) 50,000 unit PO SA 10/28/17 09/25/19 [Vitamin D2] Gemfibrozil [Lopid] 600 mg PO DAILY 10/28/17 09/25/19 Metoprolol Tartrate [Lopressor] 100 mg PO BID 10/28/17 09/25/19 Vitamin B Complex 1 cap PO HS 10/28/17 09/25/19 Aliskiren Hemifumarate [Tekturna] 150 mg PO HS 11/19/18 09/25/19 Vit C/E/Zn/Coppr/Lutein/Zeaxan 1 cap PO BID 11/19/18 09/25/19 [Preservision Areds 2 Softgel] amLODIPine BESYLATE [Norvasc] 10 mg PO HS 11/19/18 09/25/19 Fluticasone Nasal [place] [Flonase 2 sprays EA NOSTRIL DAILY PRN 09/25/19 09/25/19 Nasal [place]] Loratadine [Claritin] 10 mg PO DAILY 09/25/19 09/25/19 diphenhydrAMINE HCL [Benadryl] 25 mg PO HS 09/25/19 09/25/19 Previous Rx's Medication Instructions Recorded Losartan [Cozaar] 100 mg PO DAILY tab 09/26/19 Allergies Allergy/AdvReac Type Severity Reaction Status Date / Time No Known Allergies Allergy Verified 09/25/19 15:54 Review of Systems ROS Statement: Those systems with pertinent positive or pertinent negative responses have been documented in the HPI. ROS Other: All systems not noted in ROS Statement are negative. Past Medical History Past Medical History: Cancer, Eye Disorder, GI Bleed, Hypertension, Osteoarthritis (OA), Prostate Disorder Additional Past Medical History / Comment(s): Diverticulits, hx of GI bleeding, Contracted L hand,(dupuytren's contracture) Gout, Macular Degeneration, hx. skin cancer on his face, inner ear infections. History of Any Multi-Drug Resistant Organisms: None Reported Past Surgical History: Bowel Resection, Heart Catheterization, Hernia Repair, Orthopedic Surgery, Prostate Surgery Additional Past Surgical History / Comment(s): rt hand surgery. rt ear patch 2018, mult hernia's Past Anesthesia/Blood Transfusion Reactions: No Reported Reaction Past Psychological History: No Psychological Hx Reported Smoking Status: Former smoker Past Alcohol Use History: None Reported Past Drug Use History: None Reported - Past Family History Father Family Medical History: Cancer Additional Family Medical History / Comment(s): Lung General Exam Limitations: no limitations Course Vital Signs 10/28/19 22:09 Temperature 97.6 F Pulse Rate 98 Respiratory 18 Rate Blood Pressure 160/80 O2 Sat by Pulse 94 L Oximetry Medical Decision Making - Lab Data Result diagrams: 10/28/19 22:17 10/28/19 22:17 Lab Results 10/28/19 10/28/19 10/28/19 Range/Units 22:17 22:17 22:17 WBC 8.9 (3.8-10.6) k/uL RBC 5.01 (4.30-5.90) m/uL Hgb 14.7 (13.0-17.5) gm/dL Hct 45.4 (39.0-53.0) % MCV 90.8 (80.0-100.0) fL MCH 29.5 (25.0-35.0) pg MCHC 32.5 (31.0-37.0) g/dL RDW 14.3 (11.5-15.5) % Plt Count 255 (150-450) k/uL Neutrophils % 70 % Lymphocytes % 22 % Monocytes % 5 % Eosinophils % 1 % Basophils % 1 % Neutrophils # 6.2 (1.3-7.7) k/uL Lymphocytes # 1.9 (1.0-4.8) k/uL Monocytes # 0.5 (0-1.0) k/uL Eosinophils # 0.1 (0-0.7) k/uL Basophils # 0.0 (0-0.2) k/uL PT 10.2 (9.0-12.0) sec INR 1.0 (<1.2) APTT 26.1 (22.0-30.0) sec Sodium (137-145) mmol/L Potassium (3.5-5.1) mmol/L Chloride (98-107) mmol/L Carbon Dioxide (22-30) mmol/L Anion Gap mmol/L BUN (9-20) mg/dL Creatinine (0.66-1.25) mg/dL Est GFR (CKD-EPI)AfAm (>60 ml/min/1.73 sqM) Est GFR (CKD-EPI)NonAf (>60 ml/min/1.73 sqM) Glucose (74-99) mg/dL Plasma Lactic Acid Real (0.7-2.0) mmol/L Calcium (8.4-10.2) mg/dL Magnesium (1.6-2.3) mg/dL Total Bilirubin (0.2-1.3) mg/dL AST (17-59) U/L ALT (4-49) U/L Alkaline Phosphatase (38-126) U/L Total Protein (6.3-8.2) g/dL Albumin (3.5-5.0) g/dL Stool Occult Blood (Negative) Blood Type Recheck No Previous Record Bld Type Recheck Status CABO Indicated 10/28/19 10/28/19 10/28/19 Range/Units 22:17 22:17 22:30 WBC (3.8-10.6) k/uL RBC (4.30-5.90) m/uL Hgb (13.0-17.5) gm/dL Hct (39.0-53.0) % MCV (80.0-100.0) fL MCH (25.0-35.0) pg MCHC (31.0-37.0) g/dL RDW (11.5-15.5) % Plt Count (150-450) k/uL Neutrophils % % Lymphocytes % % Monocytes % % Eosinophils % % Basophils % % Neutrophils # (1.3-7.7) k/uL Lymphocytes # (1.0-4.8) k/uL Monocytes # (0-1.0) k/uL Eosinophils # (0-0.7) k/uL Basophils # (0-0.2) k/uL PT (9.0-12.0) sec INR (<1.2) APTT (22.0-30.0) sec Sodium 134 L (137-145) mmol/L Potassium 4.3 (3.5-5.1) mmol/L Chloride 99 (98-107) mmol/L Carbon Dioxide 25 (22-30) mmol/L Anion Gap 10 mmol/L BUN 14 (9-20) mg/dL Creatinine 0.90 (0.66-1.25) mg/dL Est GFR (CKD-EPI)AfAm 87 (>60 ml/min/1.73 sqM) Est GFR (CKD-EPI)NonAf 75 (>60 ml/min/1.73 sqM) Glucose 138 H (74-99) mg/dL Plasma Lactic Acid Real 2.3 H* (0.7-2.0) mmol/L Calcium 9.6 (8.4-10.2) mg/dL Magnesium 2.0 (1.6-2.3) mg/dL Total Bilirubin 0.5 (0.2-1.3) mg/dL AST 25 (17-59) U/L ALT 18 (4-49) U/L Alkaline Phosphatase 186 H (38-126) U/L Total Protein 6.8 (6.3-8.2) g/dL Albumin 4.1 (3.5-5.0) g/dL Stool Occult Blood Positive (Negative) Blood Type Recheck Bld Type Recheck Status Disposition Clinical Impression: GI bleed Disposition: ADMITTED IP TO THIS [facility] Condition: Fair Referrals: Trent Armando MD [Primary Care Provider] - 1-2 days Decision Time: 22:54
[2019-10-28 22:39] LABS: Basophils % (A) 1 %; Eosinophils # (A) 0.1 k/uL (0-0.7); Eosinophils % (A) 1 %; HCT 45.4 % (39.0-53.0); HGB 14.7 gm/dL (13.0-17.5); Lymphocytes # (A) 1.9 k/uL (1.0-4.8); Lymphocytes % (A) 22 %; MCH 29.5 pg (25.0-35.0); MCHC 32.5 g/dL (31.0-37.0); MCV 90.8 fL (80.0-100.0); Mean Platelet Volume 7.8; Monocytes # (A) 0.5 k/uL (0-1.0); Monocytes % (A) 5 %; Neutrophils # (A) 6.2 k/uL (1.3-7.7); Neutrophils % (A) 70 %; Platelet Count 255 k/uL (150-450); RBC 5.01 m/uL (4.30-5.90); RDW 14.3 % (11.5-15.5); WBC 8.9 k/uL (3.8-10.6)
[2019-10-28 22:45] LABS: Partial Thromboplastin Time 26.1 sec (22.0-30.0); Prothrombin Time 10.2 sec (9.0-12.0)
[2019-10-28 22:46] LABS: Albumin 4.1 g/dL (3.5-5.0); Calcium 9.6 mg/dL (8.4-10.2); Potassium 4.3 mmol/L (3.5-5.1); Total Bilirubin 0.5 mg/dL (0.2-1.3); Total Protein 6.8 g/dL (6.3-8.2)
[2019-10-28] MEDS ORDERED: SODIUM CHLORIDE 0.9% 500 ML 500 ML IV STA (22:50)
[2019-10-28] MEDS ORDERED: PANTOPRAZOLE 40 MG/10 ML VIAL IVP ONE (22:53)
[2019-10-28] MEDS ORDERED: NALOXONE 0.4 MG/ML 1 ML VIAL IV PRN (22:54)
[2019-10-28] MEDS ORDERED: ONDANSETRON 4 MG/2 ML VIAL IVP PRN (22:54)
[2019-10-28] MEDS ORDERED: HYDROcodone/APAP 5-325MG 1 EACH TAB PO STA (22:57)
[2019-10-29] MEDS: SODIUM CHLORIDE 0.9% 1,000 ML IV SCH ×3 (00:59→20:29)
[2019-10-29] MEDS: METOPROLOL TARTRATE 50 MG TAB PO SCH ×2 (08:48→20:31)
[2019-10-29] MEDS: PANTOPRAZOLE 40 MG/10 ML VIAL IV SCH (08:48)
[2019-10-29 08:57] LABS: Basophils % (A) 0 %; Eosinophils # (A) 0.1 k/uL (0-0.7); Eosinophils % (A) 1 %; HCT 38.1 % (39.0-53.0); HGB 12.2 gm/dL (13.0-17.5); Lymphocytes # (A) 1.2 k/uL (1.0-4.8); Lymphocytes % (A) 18 %; MCH 29.4 pg (25.0-35.0); MCHC 31.9 g/dL (31.0-37.0); Mean Platelet Volume 7.4; Monocytes # (A) 0.3 k/uL (0-1.0); Monocytes % (A) 5 %; Neutrophils # (A) 4.9 k/uL (1.3-7.7); Neutrophils % (A) 74 %; Platelet Count 178 k/uL (150-450); RBC 4.15 m/uL (4.30-5.90); RDW 14.4 % (11.5-15.5); WBC 6.6 k/uL (3.8-10.6)
[2019-10-29 09:19] LABS: African American GFR (CKD) >90 (>60 ml/min/1.73 sqM); Anion Gap 4 mmol/L; Blood Urea Nitrogen 11 mg/dL (9-20); Calcium 8.9 mg/dL (8.4-10.2); Carbon Dioxide 25 mmol/L (22-30); Chloride 108 mmol/L (98-107); Glucose 93 mg/dL (74-99); Non-African American GFR(CKD) 81 (>60 ml/min/1.73 sqM); Potassium 4.4 mmol/L (3.5-5.1); Sodium 137 mmol/L (137-145)
[2019-10-29] MEDS: ACETAMINOPHEN TAB 325 MG TAB PO PRN ×2 (11:51→18:57)
[2019-10-29] MEDS ORDERED: ALPRAZolam 0.25 MG TAB PO PRN (12:20)
--- NOTE | 2019-10-29 14:52 | XR ---
EXAMINATION TYPE: XR chest 1V portable DATE OF EXAM: 10/29/2019 COMPARISON: September 25, 2019 HISTORY: Chest pain TECHNIQUE: FINDINGS: There is some airspace infiltrate and atelectasis left lung base. There is blunting left co stophrenic angle. Heart is shifted somewhat to the left side. Right lung is clear. There are chest le ads. No heart failure seen. IMPRESSION: There is increasing left lower lobe infiltrate and atelectasis and pleural thickening com pared to old exam.
--- NOTE | 2019-10-29 15:24 | P.CONS ---
History of Present Illness - Reason for Consult Consult date: 10/29/19 GI bleed Requesting physician: Bebeto Vaz - Chief Complaint Blood per rectum - History of Present Illness 89-year-old male with a medical history significant for osteoarthritis, macular degeneration, hypertension with prior episodes of GI bleed including a prior colon resection who presents to the hospital with complaints of blood per rectum. No history is been taking in conversation with the patient and his son who is sitting bedside. The patient's son reports he is had 2 prior hospitalizations for GI bleed one occurring 12 years ago and a second occurring 8 years ago which the patient was hospitalized for possibly one week and required multiple transfusions of packed red blood cells. 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 The bleed his last colon oscopy was probably after this last hospitalization. Since that time he has been doing well however he had an episode of painless bright red blood per rectum prior to presentation. Given his prior history a brought into the hospital for further evaluation. No further bleeding since that time. No abdominal pain reported. No nausea or vomiting. Hemoglobin on presentation to 14.1 and currently 12.2 with WBC is 6.6 and platelet count 170,000. Review of Systems REVIEW OF SYSTEMS: CONSTITUTIONAL: Denies any fevers, chills, weight change or fatigue. CARDIOVASCULAR: Denies any chest pain, palpitations high or low blood pressures RESPIRATORY: Denies any shortness of breath, hemoptysis or cough. GENITOURINARY: No dysuria or hematuria. MUSCULOSKELETAL: No weakness reported. SKIN: Denies any new rashes or lesions, jaundice or pallor. PSYCHIATRIC: Denies any depression or anxiety. NEUROLOGY: Denies headache, denies any new focal deficits. EARS/NOSE/THROAT: No recent hearing change, congestion, nasal discharge or sore throat. EYES: No pain in eyes, discharge or change in vision. GASTROINTESTINAL: As per HPI. Past Medical History Past Medical History: Cancer, Eye Disorder, GI Bleed, Hypertension, Osteoarthritis (OA), Prostate Disorder Additional Past Medical History / Comment(s): Diverticulits, hx of GI bleeding, Contracted L hand,(dupuytren's contracture) Gout, Macular Degeneration, hx. skin cancer on his face, inner ear infections. History of Any Multi-Drug Resistant Organisms: None Reported Past Surgical History: Bowel Resection, Heart Catheterization, Hernia Repair, Orthopedic Surgery, Prostate Surgery Additional Past Surgical History / Comment(s): rt hand surgery. rt ear patch 2018, mult hernia's Past Anesthesia/Blood Transfusion Reactions: No Reported Reaction Past Psychological History: No Psychological Hx Reported Smoking Status: Former smoker Past Alcohol Use History: None Reported Additional Past Alcohol Use History / Comment(s): Quit smoking 30 years ago. Past Drug Use History: None Reported - Past Family History Father Family Medical History: Cancer Additional Family Medical History / Comment(s): Lung Medications and Allergies Home Medications Medication Instructions Recorded Confirmed Type Allopurinol [Zyloprim] 300 mg PO DAILY 10/28/17 10/29/19 History Aspirin 81 mg PO HS 10/28/17 10/29/19 History Ergocalciferol (Vitamin D2) 50,000 unit PO SA 10/28/17 10/29/19 History [Vitamin D2] Gemfibrozil [Lopid] 600 mg PO DAILY 10/28/17 10/29/19 History Metoprolol Tartrate [Lopressor] 100 mg PO BID 10/28/17 10/29/19 History Vitamin B Complex 1 cap PO HS 10/28/17 10/29/19 History Aliskiren Hemifumarate [Tekturna] 150 mg PO HS 11/19/18 10/29/19 History Vit C/E/Zn/Coppr/Lutein/Zeaxan 1 cap PO BID 11/19/18 10/29/19 History [Preservision Areds 2 Softgel] amLODIPine BESYLATE [Norvasc] 10 mg PO HS 11/19/18 10/29/19 History Ketorolac [Toradol] 10 mg PO BID PRN 10/29/19 10/29/19 History Allergies Allergy/AdvReac Type Severity Reaction Status Date / Time No Known Allergies Allergy Verified 10/29/19 10:15 Physical Exam Vitals: Vital Signs Temp Pulse Pulse Resp BP BP Pulse Ox 10/29/19 08:00 97.7 F 99 18 123/55 94 L 10/29/19 04:00 97.9 F 90 20 135/78 95 10/29/19 00:17 92 18 142/82 97 10/29/19 00:00 98 F 95 20 150/72 96 10/28/19 22:09 97.6 F 98 18 160/80 94 L Intake and Output 10/28/19 10/29/19 10/29/19 22:59 06:59 14:59 Intake Total 250 0 Balance 250 0 Intake: Intake, IV Titration 250 Amount Sodium Chloride 0.9% 500 250 ml 500 ml @ 999 mls/hr IV .Q31M STA Rx#:[id number] Oral 0 Other: # Voids 2 0 # Bowel Movements 0 Weight 68.946 kg 67.8 kg On physical examination, patient appears comfortable in no apparent distress. HEAD: Normocephalic, atraumatic. EYES: No scleral icterus. No conjunctival injection. MOUTH: No lesions, tongue midline. NECK: Trachea midline, no gross abnormalities. CHEST: Decreased air entry bilaterally. HEART: S1-S2 appreciated. ABDOMEN: Soft, nontender to palpation. Bowel sounds are positive. No organomegaly. No guarding or rigidity. EXTREMITIES: No pedal edema. SKIN: No rashes, no jaundice. NEUROLOGIC: Alert and oriented to person and place. Results CBC & Chem 7: 10/29/19 08:33 10/29/19 08:33 Labs: Abnormal Lab Results - Last 24 Hours (Table) 10/28/19 10/28/19 10/29/19 Range/Units 22:17 22:17 08:33 RBC 4.15 L (4.30-5.90) m/uL Hgb 12.2 L (13.0-17.5) gm/dL Hct 38.1 L (39.0-53.0) % Sodium 134 L (137-145) mmol/L Chloride (98-107) mmol/L Glucose 138 H (74-99) mg/dL Plasma Lactic Acid Real 2.3 H* (0.7-2.0) mmol/L Alkaline Phosphatase 186 H (38-126) U/L 10/29/19 Range/Units 08:33 RBC (4.30-5.90) m/uL Hgb (13.0-17.5) gm/dL Hct (39.0-53.0) % Sodium (137-145) mmol/L Chloride 108 H (98-107) mmol/L Glucose (74-99) mg/dL Plasma Lactic Acid Real (0.7-2.0) mmol/L Alkaline Phosphatase (38-126) U/L Chest x-ray: report reviewed (Increasing left lower infiltrate on chest x-ray.) Assessment and Plan (1) GI bleed Narrative/Plan: 89-year-old male presented to the hospital with complaints of painless bright red blood per rectum. Reports one large bowel movement with bright red blood yesterday but denies any further bleeding. History for the patient and his son reports 2 episodes of bleeding in the past 12 years ago and then 8 years ago which she were told was secondary to diverticulosis. He subsequently had surgery due to fistula formation. One episode on current presentation. Hemoglobin has remained stable at 12.2. Suspect recurrent diverticular bleed with differential also including hemorrhoidal bleeding, AVM, or other etiology. Current Visit: Yes Status: Acute Code(s): K92.2 - GASTROINTESTINAL HEMORRHAGE, UNSPECIFIED SNOMED Code(s): 95551597 (2) Diverticulosis Current Visit: Yes Status: Acute Code(s): K57.90 - DVRTCLOS OF INTEST, PART UNSP, W/O PERF OR ABSCESS W/O BLEED SNOMED Code(s): 318004706 Plan: Supportive care Clear liquid diet Continue to monitor hemoglobin and hematocrit and transfuse as needed Continue to monitor stool output No plans for endoscopic evaluation at this time Avoid anticoagulation at this time Thank you for allowing us to participate in the care of
[2019-10-29] MEDS: HYDROcodone/APAP 5-325MG 1 EACH TAB PO PRN ×2 (15:57→23:59)
--- NOTE | 2019-10-29 16:30 | HP ---
HISTORY AND PHYSICAL I am covering for Dr. Armando. DATE OF SERVICE: 10/29/2019 CHIEF COMPLAINT: Lower GI bleed. HISTORY OF PRESENT ILLNESS: This 89-year-old gentleman with a past medical history of multiple medical problems including history of GI bleed, hypertension, history of DJD, history of prostate disorder, history of diverticulitis, history of lipids, contractures of the left hand, history of gout, history of macular degeneration, history of bowel resection, being followed by Dr. Armando and Antoni Eduardo in the outpatient setting, was noted to have lower gastrointestinal bleeding. The patient apparently had a previous history of lower gastrointestinal bleeding a few years ago, the patient had severe hypotension and shock and ended up in ICU. During that time, apparently, diverticulosis was diagnosed as possible cause of the etiology. Currently the patient had bright red blood passing of the rectum. The family was concerned and the patient was taken to [facility] and admitted for further evaluation and treatment. There is no history of fever, rigors or chills. No history of headache, loss of consciousness or seizures. Most of the history is taken from my discussion with the family at the bedside. PAST MEDICAL HISTORY: History of GI bleed, history of hypertension, history of diverticulosis, history of DJD, history of Dupuytren's contracture, history of gout, macular degeneration, history of bowel resection, history of cardiac catheterization, history of nicotine dependence. MEDICATIONS: Home medications are: 1. Toradol 10 mg b.i.d. p.r.n. 2. Norvasc 10 mg q.h.s. 3. Vitamin B complex 1 p.o. q.h.s. 4. PreserVision 1 capsule p.o. b.i.d. 5. Lopressor 100 mg p.o. b.i.d. 6. Lopid 600 mg p.o. daily. 7. Vitamin D2 50,000 Thursday. 8. Aspirin 81 mg q.h.s. 9. Zyloprim 300 mg p.o. b.i.d. 10.Tekturna 150 mg q.h.s. ALLERGIES: None. FAMILY HISTORY: History of lung cancer in the family. SOCIAL HISTORY: Previous history of smoking. No history of current smoking or alcohol intake. REVIEW OF SYSTEMS: ENT: No diminished vision. No diminished hearing. Cardio system as mentioned earlier. RESPIRATORY: As mentioned earlier. GI: As mentioned earlier. no dysuria or hematuria. NERVOUS SYSTEM: No numbness or weakness. ALLERGY/IMMUNOLOGY: No asthma or hay fever. MUSCULOSKELETAL as mentioned earlier. HEMATOLOGY/ONCOLOGY: No history of anemia. ENDOCRINE: No history of diabetes or hypothyroidism. CONSTITUTIONAL: As mentioned earlier. DERMATOLOGY: Negative. RHEUMATOLOGY negative. PSYCHIATRY as mentioned earlier. PHYSICAL EXAMINATION: The patient is alert and oriented times three. Pulse 69, blood pressure 126/62, respirations 16, temperature 97.7, pulse ox 97% on 2 L. HEENT is conjunctivae pale. Oral mucosa moist. NECK is no jugular venous distention. No carotid bruit. No lymph node enlargement. Cardiovascular system: S1, S2. No S3, no S4. RESPIRATORY: Breath sounds diminished in the bases. No rhonchi, no crackles. ABDOMEN: Soft. Mild diffuse discomfort on palpation. No guarding. No rigidity. No mass palpable. LEGS: No edema. No swelling. NERVOUS SYSTEM: Higher functions as mentioned earlier. Moves all 4 limbs. No focal motor or sensory deficits. LYMPHATICS: No lymph nodes palpable in the neck, axillae or groin. SKIN: No ulcer, no rashes and no bleeding. JOINTS no active deforming arthropathy. LAB STUDIES: WBC 6.2, hemoglobin 12.2, sodium 137, potassium 4.4. Stool OB is positive. ASSESSMENT: 1. Lower gastrointestinal bleeding with acute blood loss anemia, mild, possibly diverticular bleed. 2. History of back pain. 3. History of hypertension. 4. History of degenerative joint disease. 5. History of prostate disorder. 6. History of diverticulitis. 7. History of Dupuytren's contractures on the left. 8. History of gout. 9. History of macular degeneration. 10.History of skin cancer face. 11.History of inner ear infections. 12.History of degenerative joint disease. 13.Remote history of nicotine dependence. 14.High lactic acid post secondary dehydration. 15.FULL CODE. RECOMMENDATIONS AND DISCUSSION: This 89-year-old gentleman who presented with multiple complex medical issues, we will monitor the patient closely. Continue the current medications, management and symptomatic treatment. At this time, I would recommend to stop the NSAIDs. Otherwise, I would recommend proton pump inhibitors. Gastroenterology consultation. Monitor hemoglobin closely. If the hemoglobin drops less than 8 or 7 recommend transfusion. Otherwise DVT prophylaxis. Prognosis guarded because of multiple complex medical issues. Discussed with the son at the bedside and family at the bedside. Understands and agrees. Further recommendations to follow. MMODL / IJN: [id number] /
[2019-10-29] MEDS: ALISKIREN HEMIFUMARATE 150 MG PO SCH (20:24)
[2019-10-29] MEDS: NON FORMULARY DRUG (Vitamin B Complex [Vitamin B Complex] 1 CAP) PO SCH (20:24)
[2019-10-29] MEDS: VIT A,C & E-LUTEIN-MINERALS 1 EACH TAB PO SCH (20:32)
[2019-10-29] MEDS: amLODIPine 10 MG TAB PO SCH (20:32)
[2019-10-29 21:09] LABS: HCT 35.2 % (39.0-53.0); HGB 11.5 gm/dL (13.0-17.5); MCH 29.9 pg (25.0-35.0); MCHC 32.7 g/dL (31.0-37.0); MCV 91.5 fL (80.0-100.0); Mean Platelet Volume 7.7; Platelet Count 193 k/uL (150-450); RBC 3.85 m/uL (4.30-5.90); RDW 14.4 % (11.5-15.5); WBC 5.8 k/uL (3.8-10.6)
[2019-10-30] MEDS: SODIUM CHLORIDE 0.9% 1,000 ML IV SCH ×3 (04:46→23:54)
[2019-10-30] MEDS: ACETAMINOPHEN TAB 325 MG TAB PO PRN ×2 (06:02→21:00)
[2019-10-30 07:35] LABS: Basophils % (A) 0 %; Eosinophils # (A) 0.1 k/uL (0-0.7); Eosinophils % (A) 1 %; HCT 37.2 % (39.0-53.0); Lymphocytes % (A) 20 %; MCH 29.4 pg (25.0-35.0); MCHC 32.2 g/dL (31.0-37.0); MCV 91.4 fL (80.0-100.0); Mean Platelet Volume 7.5; Monocytes # (A) 0.2 k/uL (0-1.0); Monocytes % (A) 4 %; Neutrophils # (A) 3.9 k/uL (1.3-7.7); Neutrophils % (A) 73 %; Platelet Count 190 k/uL (150-450); RBC 4.07 m/uL (4.30-5.90); RDW 14.5 % (11.5-15.5); WBC 5.3 k/uL (3.8-10.6)
[2019-10-30 07:48] LABS: African American GFR (CKD) >90 (>60 ml/min/1.73 sqM); Anion Gap 4 mmol/L; Blood Urea Nitrogen 8 mg/dL (9-20); Calcium 9.1 mg/dL (8.4-10.2); Carbon Dioxide 27 mmol/L (22-30); Chloride 106 mmol/L (98-107); Glucose 101 mg/dL (74-99); Non-African American GFR(CKD) 84 (>60 ml/min/1.73 sqM); Potassium 3.9 mmol/L (3.5-5.1); Sodium 137 mmol/L (137-145)
[2019-10-30] MEDS: FENOFIBRATE 160 MG TAB PO SCH (09:36)
[2019-10-30] MEDS: METOPROLOL TARTRATE 50 MG TAB PO SCH ×2 (09:36→20:56)
[2019-10-30] MEDS: ALLOPURINOL 300 MG TAB PO SCH (09:36)
[2019-10-30] MEDS: PANTOPRAZOLE 40 MG/10 ML VIAL IV SCH (09:36)
[2019-10-30] MEDS: VIT A,C & E-LUTEIN-MINERALS 1 EACH TAB PO SCH ×2 (09:36→21:00)
[2019-10-30] MEDS: HYDROcodone/APAP 5-325MG 1 EACH TAB PO PRN ×2 (09:39→16:09)
--- NOTE | 2019-10-30 16:28 | P.PN ---
Subjective Progress Note Date: 10/30/19 Principal diagnosis: GI bleed, blood per rectum, history diverticulosis Patient seen sitting bedside today. He tolerated a liquid diet. No further signs or symptoms of GI bleeding. No abdominal pain. Objective - Vital Signs Vital signs: Vital Signs Temp 98.2 F 10/30/19 05:00 Pulse 95 10/30/19 05:00 Resp 20 10/30/19 05:00 BP 163/75 10/30/19 05:00 Pulse Ox 91 L 10/30/19 05:00 Intake & Output 10/29/19 10/30/19 10/30/19 17:59 06:59 18:59 Intake Total Output Total Balance Weight Intake: Intake, IV Titration Amount Sodium Chloride 0.9% 500 ml 500 ml @ 999 mls/hr IV .Q31M STA Rx#:[id number] Oral Output: Urine Other: Voiding Method # Voids # Bowel Movements - Exam On physical examination, patient appears comfortable in no apparent distress. HEAD: Normocephalic, atraumatic. EYES: No scleral icterus. No conjunctival injection. MOUTH: No lesions, tongue midline. NECK: Trachea midline, no gross abnormalities. ABDOMEN: Soft, nontender to palpation. Bowel sounds are positive. No organomegaly. No guarding or rigidity. EXTREMITIES: No pedal edema. SKIN: No rashes, no jaundice. NEUROLOGIC: Alert and oriented x3. No focal deficits. - Labs CBC & Chem 7: 10/30/19 07:01 10/30/19 07:01 Labs: Abnormal Lab Results - Last 24 Hours (Table) 10/29/19 10/30/19 10/30/19 Range/Units 20:27 07:01 07:01 RBC 3.85 L 4.07 L (4.30-5.90) m/uL Hgb 11.5 L 12.0 L (13.0-17.5) gm/dL Hct 35.2 L 37.2 L (39.0-53.0) % BUN 8 L (9-20) mg/dL Glucose 101 H (74-99) mg/dL Assessment and Plan (1) GI bleed Narrative/Plan: 89-year-old male presented to the hospital with complaints of painless bright red blood per rectum. Reports one large bowel movement with bright red blood yesterday but denies any further bleeding. History for the patient and his son reports 2 episodes of bleeding in the past 12 years ago and then 8 years ago which she were told was secondary to diverticulosis. He subsequently had surgery due to fistula formation. One episode on current presentation. Hemo globin has remained stable at 12.0 today. Suspect recurrent diverticular bleed with differential also including hemorrhoidal bleeding, AVM, or other etiology. No further evidence of bleeding at this time. Current Visit: Yes Status: Acute Code(s): K92.2 - GASTROINTESTINAL HEMORRHAGE, UNSPECIFIED SNOMED Code(s): 88625286 (2) Diverticulosis Current Visit: Yes Status: Acute Code(s): K57.90 - DVRTCLOS OF INTEST, PART UNSP, W/O PERF OR ABSCESS W/O BLEED SNOMED Code(s): 921601307 Plan: Supportive care Low fiber diet ordered Continue to monitor hemoglobin and hematocrit and transfuse as needed Continue to monitor stool output No plans for endoscopic evaluation at this time Avoid anticoagulation at this time Thank you for allowing us to participate in the care of the patient, okay for discharge when otherwise medically stable
[2019-10-30] MEDS: ALISKIREN HEMIFUMARATE 150 MG PO SCH (20:55)
[2019-10-30] MEDS: NON FORMULARY DRUG (Vitamin B Complex [Vitamin B Complex] 1 CAP) PO SCH (20:56)
[2019-10-30] MEDS: amLODIPine 10 MG TAB PO SCH (20:56)
--- NOTE | 2019-10-30 21:12 | PN ---
PROGRESS NOTE DATE OF SERVICE: 10/30/2019 This 89-year-old gentleman who was admitted with a history of GI bleed is being closely monitored. Dr. Madrid is following the patient closely. No active bleeding is noted. The hemoglobin is 12. No chest pain. No palpitations. No fever. Patient had a previous history of massive GI bleeding with shock and multiple other complications. PHYSICAL EXAMINATION: Alert and oriented x2. Pulse is 86, blood pressure 132/60, respiration 14, temperature 97.9, pulse ox 98% on room air. skin: HEENT: Conjunctivae normal. Oral mucosa moist. NECK: No jugular venous distention. No lymph node enlargement. CARDIOVASCULAR: S1, S2. RESPIRATORY: Diminished breath sounds at the bases. No rhonchi, no crackles. ABDOMEN: Soft, nontender. LEGS: No edema, no swelling. NERVOUS SYSTEM: No focal deficits. LABS: Hemoglobin is 12, sodium 137, potassium 3.9. ASSESSMENT: 1. Acute lower gastrointestinal bleeding with acute blood loss anemia, possibly diverticular bleed. 2. History of previous significant diverticula with massive bleed. 3. History of back pain. 4. History of hypertension. 5. History of degenerative joint disease. 6. History of prostate disorder. 7. History of diverticulitis. 8. History of Dupuytren's contracture on the left. 9. History of gout. 10.History of macular edema. 11.History of skin cancer on the face. 12.History of urinary tract infection. 13.Remote history of nicotine dependence. 14.High lactic acid, possibly secondary to dehydration. 15.FULL CODE. RECOMMENDATIONS AND DISCUSSION: I recommend to continue current medications, continue to monitor, symptomatic treatment. Otherwise, at this time I recommend to continue with current medication. Monitor hemoglobin closely. Gastroenterology input appreciated. Guarded prognosis because of multiple complex medical issues. Further recommendations to follow. MMODL / IJN: [id number] /
[2019-10-31] MEDS: HYDROcodone/APAP 5-325MG 1 EACH TAB PO PRN ×2 (04:16→13:27)
[2019-10-31 04:35] VITALS: RESP 20
[2019-10-31] MEDS: PANTOPRAZOLE 40 MG/10 ML VIAL IV SCH (08:39)
[2019-10-31] MEDS: METOPROLOL TARTRATE 50 MG TAB PO SCH (08:40)
[2019-10-31] MEDS: VIT A,C & E-LUTEIN-MINERALS 1 EACH TAB PO SCH (08:40)
[2019-10-31] MEDS: FENOFIBRATE 160 MG TAB PO SCH (08:40)
[2019-10-31] MEDS: ALLOPURINOL 300 MG TAB PO SCH (08:40)
[2019-10-31 09:59] LABS: Basophils % (A) 0 %; Eosinophils # (A) 0.2 k/uL (0-0.7); Eosinophils % (A) 2 %; HCT 42.5 % (39.0-53.0); HGB 13.5 gm/dL (13.0-17.5); Lymphocytes # (A) 1.9 k/uL (1.0-4.8); Lymphocytes % (A) 21 %; MCH 29.2 pg (25.0-35.0); MCHC 31.8 g/dL (31.0-37.0); MCV 91.8 fL (80.0-100.0); Mean Platelet Volume 7.5; Monocytes # (A) 0.4 k/uL (0-1.0); Monocytes % (A) 5 %; Neutrophils # (A) 6.5 k/uL (1.3-7.7); Neutrophils % (A) 71 %; Platelet Count 310 k/uL (150-450); RBC 4.63 m/uL (4.30-5.90); RDW 14.5 % (11.5-15.5); WBC 9.2 k/uL (3.8-10.6)
[2019-10-31 10:14] LABS: African American GFR (CKD) >90 (>60 ml/min/1.73 sqM); Anion Gap 9 mmol/L; Blood Urea Nitrogen 7 mg/dL (9-20); Calcium 9.7 mg/dL (8.4-10.2); Carbon Dioxide 26 mmol/L (22-30); Chloride 103 mmol/L (98-107); Glucose 114 mg/dL (74-99); Non-African American GFR(CKD) 83 (>60 ml/min/1.73 sqM); Sodium 138 mmol/L (137-145)
[2019-10-31] MEDS: SODIUM CHLORIDE 0.9% 1,000 ML IV SCH (10:20)
[2019-10-31] MEDS: ACETAMINOPHEN TAB 325 MG TAB PO PRN (10:20)
[2019-10-31 10:26] LABS: Potassium 4.3 mmol/L (3.5-5.1)
[2019-10-31] MEDS ORDERED: BISACODYL 10 MG SUPP RECTAL ONE (11:30)
[2019-10-31 12:40] VITALS: BP 155/70; PULSE 84; TEMP 98
--- NOTE | 2019-11-01 08:27 | P.DS ---
Providers Date of admission: 10/30/19 07:55 Expected date of discharge: 10/31/19 Attending physician: Bebeto Vaz Primary care physician: Trent Armando MD Hospital Course: Final diagnosis Acute lower gastrointestinal bleeding with acute blood loss anemia, possibly diverticular bleed History of previous significant diverticula with massive bleed History back pain History of hypertension History of degenerative joint disease History of prostate disorder History of diverticulitis history of Dupuytren's contracture on the left History of gout History of macular edema History of skin cancer on the face History of urinary tract infection Remote history of nicotine dependence High lactic acid, possibly secondary to dehydration Full code Discharge disposition Patient is being discharged in a stable condition with guarded prognosis to home. Patient will follow-up with Dr. Armando upon discharge. Total time taken is 35 minutes. History of present illness This is an 89-year-old male who was recently admitted with a history of GI bleed and was being closely monitored. Patient was seen and evaluated by GI with no active bleeding noted. Current hemoglobin is 13.5. Patient instructed to avoid aspirin and any NSAIDs until follow-up with primary care provider. Currently no reports of chest pain, shortness of breath, or palpitations. Patient is afebrile. No reports of nausea or vomiting and patient is tolerating diet. P atient would like to go home today. On exam vital signs are stable. Temp is 98F F, pulse is 84, respirations are 20, blood pressure is 155/70, oxygen saturation is 97 % on 2 L via nasal cannula. Cardio S1, S2 are muffled. Respiratory shows diminished breath sounds at the bases no wheezing or rhonchi noted. Abdomen is soft and nontender. Nervous system shows no focal deficits. Please refer to medication reconciliation sheet for a list of medications. Patient Condition at Discharge: Fair Plan - Discharge Summary Discharge Rx Participant: No New Discharge Prescriptions: New Acetaminophen Tab [Tylenol] 650 mg PO Q6HR PRN tab PRN Reason: Mild Pain Or Fever > 100.5 Continue Metoprolol Tartrate [Lopressor] 100 mg PO BID Gemfibrozil [Lopid] 600 mg PO DAILY Allopurinol [Zyloprim] 300 mg PO DAILY Vitamin B Complex 1 cap PO HS Ergocalciferol (Vitamin D2) [Vitamin D2] 50,000 unit PO SA Aliskiren Hemifumarate [T[place]turna] 150 mg PO HS amLODIPine BESYLATE [Norvasc] 10 mg PO HS Vit C/E/Zn/Coppr/Lutein/Zeaxan [Preservision Areds 2 Softgel] 1 cap PO BID Discontinued Aspirin 81 mg PO HS Ketorolac [Toradol] 10 mg PO BID PRN PRN Reason: Pain Discharge Medication List Allopurinol [Zyloprim] 300 mg PO DAILY 10/28/17 [History] Ergocalciferol (Vitamin D2) [Vitamin D2] 50,000 unit PO SA 10/28/17 [History] Gemfibrozil [Lopid] 600 mg PO DAILY 10/28/17 [History] Metoprolol Tartrate [Lopressor] 100 mg PO BID 10/28/17 [History] Vitamin B Complex 1 cap PO HS 10/28/17 [History] Aliskiren Hemifumarate [Tekturna] 150 mg PO HS 11/19/18 [History] Vit C/E/Zn/Coppr/Lutein/Zeaxan [Preservision Areds 2 Softgel] 1 cap PO BID 11/19/18 [History] amLODIPine BESYLATE [Norvasc] 10 mg PO HS 11/19/18 [History] Acetaminophen Tab [Tylenol] 650 mg PO Q6HR PRN tab 10/31/19 [Rx] Patient Instructions/Handouts: Gastrointestinal Bleeding (DC), Constipation (DC) Activity/Diet/Wound Care/Special Instructions: Activity Limited until follow-up Avoid aspirin and NSAIDs Continue current diet (soft, low fiber) Discharge Disposition: HOME SELF-CARE
[2019-11-05] MEDS ORDERED: ERGOCALCIFEROL 50,000 UNIT CAP PO SCH (09:00)
== END 2019-10-31 14:00 | disposition home or self-care (01) | DRG 378 ==
LOC: EC 22:08 → 3SCARD 22:54 → 6NMEDSUR 10-29 21:07 → OBSVTOIN 10-30 07:55
PROVIDERS: ADMIT Hospitalist; ATTEND Hospitalist
DX: K57.33 Diverticulitis of large intestine without perforation or abscess with bleeding (principal); D62 Acute posthemorrhagic anemia; E87.2 Acidosis; I10 Essential (primary) hypertension; M19.90 Unspecified osteoarthritis, unspecified site; E86.0 Dehydration; M10.9 Gout, unspecified; Z90.49 Acquired absence of other specified parts of digestive tract; Z85.828 Personal history of other malignant neoplasm of skin; Z79.899 Other long term (current) drug therapy; Z79.82 Long term (current) use of aspirin; Z98.890 Other specified postprocedural states; Z87.891 Personal history of nicotine dependence; Z80.1 Family history of malignant neoplasm of trachea, bronchus and lung; Z87.440 Personal history of urinary (tract) infections
CPT/HCPCS: 36415; 71045; 80048; 80053; 82272; 83605; 83735; 85025; 85027; 85610; 85730; 86850; 86900; 86901; 93005; 96361; 96374; 99284

== ENCOUNTER 2019-11-03 15:36 | Emergency (ER) | payer MEDICARE, OTHER ==
--- NOTE | 2019-11-03 17:40 | XR ---
EXAMINATION TYPE: XR KUB DATE OF EXAM: 11/03/2019 5:28 PM CLINICAL HISTORY: Pain and constipation TECHNIQUE: Single supine KUB image of the abdomen is obtained. COMPARISON: None. FINDINGS: Scattered gas is seen in non-distended small bowel loops. Gas and fecal material is seen in non-distended colon. In fact, there is a large volume of pancolonic stool. There is no visceromegaly, pneumoperitoneum, or abnormal calcification appreciated. The osseous structures are intact. The lung bases are predominantly clear , but there is partial silhouetting of the left hemidiaphragm mild scattered partial left lower lobe airlessness. This could be secondary to bronchiectasis versus multifocal subsegmental atelectasis versus developing infiltrate. Clinical delineation. IMPRESSION: 1. Constipation pattern. 2. Minimal partial left lower lobe airlessness.
[2019-11-03 18:08] LABS: Basophils % (A) 0 %; Eosinophils # (A) 0.1 k/uL (0-0.7); Eosinophils % (A) 1 %; HCT 43.8 % (39.0-53.0); HGB 14.3 gm/dL (13.0-17.5); Lymphocytes # (A) 1.6 k/uL (1.0-4.8); Lymphocytes % (A) 21 %; MCH 29.6 pg (25.0-35.0); MCHC 32.7 g/dL (31.0-37.0); MCV 90.5 fL (80.0-100.0); Mean Platelet Volume 7.3; Monocytes # (A) 0.5 k/uL (0-1.0); Monocytes % (A) 6 %; Neutrophils # (A) 5.2 k/uL (1.3-7.7); Neutrophils % (A) 69 %; Platelet Count 364 k/uL (150-450); RBC 4.84 m/uL (4.30-5.90); RDW 14.7 % (11.5-15.5); WBC 7.5 k/uL (3.8-10.6)
[2019-11-03 18:14] LABS: ALT 18 U/L (4-49); AST 31 U/L (17-59); African American GFR (CKD) >90 (>60 ml/min/1.73 sqM); Albumin 4.1 g/dL (3.5-5.0); Alkaline Phosphatase 188 U/L (38-126); Amylase 91 U/L (30-110); Anion Gap 10 mmol/L; Blood Urea Nitrogen 12 mg/dL (9-20); Calcium 9.6 mg/dL (8.4-10.2); Carbon Dioxide 27 mmol/L (22-30); Chloride 96 mmol/L (98-107); Glucose 116 mg/dL (74-99); Non-African American GFR(CKD) 78 (>60 ml/min/1.73 sqM); Potassium 4.1 mmol/L (3.5-5.1); Sodium 133 mmol/L (137-145); Total Bilirubin 0.8 mg/dL (0.2-1.3); Total Protein 6.9 g/dL (6.3-8.2)
[2019-11-03] MEDS ORDERED: ACETAMINOPHEN TAB 325 MG TAB PO STA (18:42)
--- NOTE | 2019-11-03 18:44 | ED ---
Abdominal Pain HPI - General Source: patient Mode of arrival: ambulatory Limitations: no limitations <Nirmal Lew - Last Filed: 11/03/19 20:38> <Matthew Duran - Last Filed: 11/03/19 21:21> - General Chief Complaint: Abdominal Pain Stated Complaint: no bowel movement Time Seen by Provider: 11/03/19 18:23 - History of Present Illness Initial Comments: Patient is an 89-year-old male presenting to emergency Department with a chief complaint of abdominal pain. According to the son, the patient was discharged one week ago after having rectal bleeding. States the patient has since been on clear liquid diet and narcotic medication. States the patient had developed some abdominal pain and distention since Thursday because he has not had any bowel movements. The son reports the patient was discharged with narcotics but no stool softeners. States he gave the patient a suppository and a laxative with minimal improvement. Patient denies any nausea or vomiting. States most of his pain is located in the right lower quadrant. Denies any fevers or chills. Patient denies any urinary symptoms. Denies any testicular pain or swelling. Denies penile discharge. (Nirmal Lew) - Related Data Home Medications Medication Instructions Recorded Confirmed Allopurinol [Zyloprim] 300 mg PO DAILY 10/28/17 10/29/19 Ergocalciferol (Vitamin D2) 50,000 unit PO SA 10/28/17 10/29/19 [Vitamin D2] Gemfibrozil [Lopid] 600 mg PO DAILY 10/28/17 10/29/19 Metoprolol Tartrate [Lopressor] 100 mg PO BID 10/28/17 10/29/19 Vitamin B Complex 1 cap PO HS 10/28/17 10/29/19 Aliskiren Hemifumarate [Tekturna] 150 mg PO HS 11/19/18 10/29/19 Vit C/E/Zn/Coppr/Lutein/Zeaxan 1 cap PO BID 11/19/18 10/29/19 [Preservision Areds 2 Softgel] amLODIPine BESYLATE [Norvasc] 10 mg PO HS 11/19/18 10/29/19 Previous Rx's Medication Instructions Recorded Acetaminophen Tab [Tylenol] 650 mg PO Q6HR PRN tab 10/31/19 Azithromycin [Zithromax Z-pack] 0 mg PO DIRECTED #6 tab 11/03/19 Docusate [Colace] 100 mg PO DAILY 24 Days #24 capsule 11/03/19 Allergies Allergy/AdvReac Type Severity Reaction Status Date / Time No Known Allergies Allergy Verified 11/03/19 16:20 Review of Systems ROS Other: All systems not noted in ROS Statement are negative. <Nirmal Lew - Last Filed: 11/03/19 20:38> ROS Other: All systems not noted in ROS Statement are negative. <Matthew Duran - Last Filed: 11/03/19 21:21> ROS Statement: Those systems with pertinent positive or pertinent negative responses have been documented in the HPI. Past Medical History Past Medical History: Cancer, Eye Disorder, GI Bleed, Hypertension, Os teoarthritis (OA), Prostate Disorder Additional Past Medical History / Comment(s): Diverticulits, hx of GI bleeding, Contracted L hand,(dupuytren's contracture) Gout, Macular Degeneration, hx. skin cancer on his face, inner ear infections. History of Any Multi-Drug Resistant Organisms: None Reported Past Surgical History: Bowel Resection, Heart Catheterization, Hernia Repair, Orthopedic Surgery, Prostate Surgery Additional Past Surgical History / Comment(s): rt hand surgery. rt ear patch 2018, mult hernia's Past Anesthesia/Blood Transfusion Reactions: No Reported Reaction Past Psychological History: No Psychological Hx Reported Smoking Status: Former smoker Past Alcohol Use History: None Reported Past Drug Use History: None Reported - Past Family History Father Family Medical History: Cancer Additional Family Medical History / Comment(s): Lung <Nirmal Lew - Last Filed: 11/03/19 20:38> General Exam Limitations: no limitations General appearance: alert, in no apparent distress Head exam: Present: atraumatic, normocephalic Eye exam: Present: normal appearance Pupils: Present: normal accommodation ENT exam: Present: normal exam Neck exam: Present: normal inspection, full ROM Respiratory exam: Present: normal lung sounds bilaterally Cardiovascular Exam: Present: regular rate, normal rhythm, normal heart sounds GI/Abdominal exam: Present: soft, distended (Mild distention), tenderness (Right lower quadrant tenderness. McBurney point tenderness. Negative Rovsing obturator psoas.). Absent: guarding, rebound, rigid Extremities exam: Present: normal inspection, full ROM Back exam: Present: normal inspection, full ROM Neurological exam: Present: alert, oriented X3 Psychiatric exam: Present: normal affect, normal mood Skin exam: Present: warm, dry, intact, normal color <Nirmal Lew - Last Filed: 11/03/19 20:38> Course Vital Signs 11/03/19 11/03/19 11/03/19 16:20 19:38 20:38 Temperature 97.7 F 97.4 F L 97.4 F L Pulse Rate 88 92 94 Respiratory 18 18 16 Rate Blood Pressure 148/69 133/65 131/75 O2 Sat by Pulse 94 L 94 L 93 L Oximetry Medical Decision Making - Lab Data Result diagrams: 11/03/19 17:43 11/03/19 17:43 <Nirmal Lew - Last Filed: 11/03/19 20:38> - Lab Data Result diagrams: 11/03/19 17:43 11/03/19 17:43 <Matthew Duran - Last Filed: 11/03/19 21:21> - Medical Decision Making Patient is a 9-year-old male presenting to the emergency department with chief complaint of constipation. No bowel movements since discharge which was 3 days ago. Patient narcotics but no stool softeners. CBC CMP UA unremarkable. CT of abdomen and pelvis obtained to rule out obstruction and possible appendicitis into right lower quadrant tenderness. CT pending. At this time patient will be signed off to (Nirmal Lew) Patient was signed out to me by physician Asst. Nirmal Lew. Briefly, patient is a 89-year-old male he was recently admitted to the hospital for GI bleed. Patient was discharged. He was discharged with prescription for [place]. Patient states that since starting that medication is began developing constipation. She states he has had some hard stools. He however has been p assing gas. Plan at sign out was to follow-up with CT imaging studies. He did have some pain in the right lower quadrant concerning for acute appendicitis. Patient allegedly has no history of abdominal surgery. Labs were reviewed CBC unremarkable. No leukocytosis. Metabolic panel is negative. Abdominal exam is benign. Computed tomography scan shows findings to suggest constipation. There was an incidental finding of left lower lobe pneumonia. Patient states he has been coughing. Disposition options were discussed with patient. Patient was really adamant about being discharged to go home. Discussed patient strategies to reduce constipation including adequate hydration, frequent a mbulation and fiber containing diet. Patient is given Colace. He is told to use his [place] medication sparingly. She was given a dose of Colace prior to discharge. He is also given 500 mg Zithromax prior to discharge. Patient told that he has radiographic findings to suggest pneumonia. Patient is under the care of his family member who will be with patient. They're told to return to the emergency Department with any worsening symptoms. (Matthew Duran) - Lab Data Lab Results 11/03/19 11/03/19 11/03/19 Range/Units 17:43 17:43 17:43 WBC 7.5 (3.8-10.6) k/uL RBC 4.84 (4.30-5.90) m/uL Hgb 14.3 (13.0-17.5) gm/dL Hct 43.8 (39.0-53.0) % MCV 90.5 (80.0-100.0) fL MCH 29.6 (25.0-35.0) pg MCHC 32.7 (31.0-37.0) g/dL RDW 14.7 (11.5-15.5) % Plt Count 364 (150-450) k/uL Neutrophils % 69 % Lymphocytes % 21 % Monocytes % 6 % Eosinophils % 1 % Basophils % 0 % Neutrophils # 5.2 (1.3-7.7) k/uL Lymphocytes # 1.6 (1.0-4.8) k/uL Monocytes # 0.5 (0-1.0) k/uL Eosinophils # 0.1 (0-0.7) k/uL Basophils # 0.0 (0-0.2) k/uL Sodium 133 L (137-145) mmol/L Potassium 4.1 (3.5-5.1) mmol/L Chloride 96 L (98-107) mmol/L Carbon Dioxide 27 (22-30) mmol/L Anion Gap 10 mmol/L BUN 12 (9-20) mg/dL Creatinine 0.82 (0.66-1.25) mg/dL Est GFR (CKD-EPI)AfAm >90 (>60 ml/min/1.73 sqM) Est GFR (CKD-EPI)NonAf 78 (>60 ml/min/1.73 sqM) Glucose 116 H (74-99) mg/dL Calcium 9.6 (8.4-10.2) mg/dL Total Bilirubin 0.8 (0.2-1.3) mg/dL AST 31 (17-59) U/L ALT 18 (4-49) U/L Alkaline Phosphatase 188 H (38-126) U/L Troponin I <0.012 (0.000-0.034) ng/mL Total Protein 6.9 (6.3-8.2) g/dL Albumin 4.1 (3.5-5.0) g/dL Amylase 91 (30-110) U/L Lipase 536 H (23-300) U/L Urine Color Urine Appearance (Clear) Urine pH (5.0-8.0) Ur Specific [place] (1.001-1.035) Urine Protein (Negative) Urine Glucose (UA) (Negative) Urine Ketones (Negative) Urine Blood (Negative) Urine Nitrite (Negative) Urine Bilirubin (Negative) Urine Urobilinogen (<2.0) mg/dL Ur Leukocyte Esterase (Negative) Urine RBC (0-5) /hpf Urine WBC (0-5) /hpf Ur Squamous Epith Cells (0-4) /hpf Hyaline Casts (0-2) /lpf Urine Mucus (None) /hpf 11/03/19 Range/Units 19:51 WBC (3.8-10.6) k/uL RBC (4.30-5.90) m/uL Hgb (13.0-17.5) gm/dL Hct (39.0-53.0) % MCV (80.0-100.0) fL MCH (25.0-35.0) pg MCHC (31.0-37.0) g/dL RDW (11.5-15.5) % Plt Count (150-450) k/uL Neutrophils % % Lymphocytes % % Monocytes % % Eosinophils % % Basophils % % Neutrophils # (1.3-7.7) k/uL Lymphocytes # (1.0-4.8) k/uL Monocytes # (0-1.0) k/uL Eosinophils # (0-0.7) k/uL Basophils # (0-0.2) k/uL Sodium (137-145) mmol/L Potassium (3.5-5.1) mmol/L Chloride (98-107) mmol/L Carbon Dioxide (22-30) mmol/L Anion Gap mmol/L BUN (9-20) mg/dL Creatinine (0.66-1.25) mg/dL Est GFR (CKD-EPI)AfAm (>60 ml/min/1.73 sqM) Est GFR (CKD-EPI)NonAf (>60 ml/min/1.73 sqM) Glucose (74-99) mg/dL Calcium (8.4-10.2) mg/dL Total Bilirubin (0.2-1.3) mg/dL AST (17-59) U/L ALT (4-49) U/L Alkaline Phosphatase (38-126) U/L Troponin I (0.000-0.034) ng/mL Total Protein (6.3-8.2) g/dL Albumin (3.5-5.0) g/dL Amylase (30-110) U/L Lipase (23-300) U/L Urine Color Yellow Urine Appearance Clear (Clear) Urine pH 6.0 (5.0-8.0) Ur Specific [place] 1.021 (1.001-1.035) Urine Protein 1+ H (Negative) Urine Glucose (UA) Negative (Negative) Urine Ketones Negative (Negative) Urine Blood Negative (Negative) Urine Nitrite Negative (Negative) Urine Bilirubin Negative (Negative) Urine Urobilinogen <2.0 (<2.0) mg/dL Ur Leukocyte Esterase Negative (Negative) Urine RBC 1 (0-5) /hpf Urine WBC 2 (0-5) /hpf Ur Squamous Epith Cells <1 (0-4) /hpf Hyaline Casts 3 H (0-2) /lpf Urine Mucus Rare H (None) /hpf Disposition <Nirmal Lew - Last Filed: 11/03/19 20:38> Is patient prescribed a controlled substance at d/c from ED?: No Time of Disposition: 21:20 <Matthew Duran - Last Filed: 11/03/19 21:21> Clinical Impression: Constipation Disposition: HOME SELF-CARE Condition: Good Instructions (If sedation given, give patient instructions): Constipation (DC) Additional Instructions: Your prescriptions were sent to you preferred pharmacy. Today you are evaluated for abdominal pain. There were findings of constipation and pneumonia seen on her CT. Please seek medical attention with any worsening abdominal symptoms, fever. Otherwise please follow up with primary care physician on discharge. Prescriptions: Docusate [Colace] 100 mg PO DAILY 24 Days #24 capsule Azithromycin [Zithromax Z-pack] 0 mg PO DIRECTED #6 tab Referrals: Trent Armando MD [Primary Care Provider] - 1-2 days
[2019-11-03 20:10] LABS: Appearance,Urine Clear (Clear); Bilirubin,Urine Negative (Negative); Blood,Urine Negative (Negative); Color,Urine Yellow; Glucose,Urine (UA) Negative (Negative); Hyaline Casts,Urine 3 /lpf (0-2); Ketones,Urine Negative (Negative); Leukocyte Esterase,Urine Negative (Negative); Mucus,Urine Rare /hpf; Nitrite,Urine Negative (Negative); Protein,Urine 1+ (Negative); RBC,Urine 1 /hpf (0-5); Specific Gravity,Urine 1.021 (1.001-1.035); Squamous Epithelial Cell,Urine <1 /hpf (0-4); Urobilinogen,Urine <2.0 mg/dL (<2.0); WBC,Urine 2 /hpf (0-5)
--- NOTE | 2019-11-03 20:54 | CT ---
EXAMINATION TYPE: CT abdomen pelvis w con DATE OF EXAM: 11/03/2019 COMPARISON: Lumbar spine MRI 04/27/2019 HISTORY: Abdominal distention, no bowel movement several days CT DLP: 800.4 mGycm Automated exposure control for dose reduction was used. TECHNIQUE: Helical acquisition of images was performed from the lung bases through the pelvis. CONTRAST: Performed without Oral Contrast and with IV Contrast, patient injected with 100 mL of Isovu e 300. FINDINGS: LUNG BASES: Consolidative ill-defined left lower lobe consolidative opacity noted, consistent with pn eumonia. Underlying central hilar process can be excluded if the process clears with a 9 weeks. LIVER: There are multifocal subcentimeter smoothly marginated homogeneous hypodense lesions, most or all consistent with simple hepatic cysts. There is a 1.5 cm hypodensity near the dome of the diaphrag m in the high segment left hepatic lobe which demonstrates peripheral hyperdensity, suggesting cavern ous hemangioma. These presumed diagnosis could be confirmed with MRI if clinically indicated. BILIARY: No significant abnormality is appreciated. PANCREAS: No significant abnormality is seen. SPLEEN: No significant abnormality is seen. ADRENALS: No significant abnormality is seen. KIDNEYS: No significant abnormality is seen. FREE AIR: No free air is visualized. RETROPERITONEAL ADENOPATHY: None visualized REPRODUCTIVE ORGANS: No significant abnormality is seen URINARY BLADDER: No significant abnormality is seen. PELVIC ADENOPATHY: None visualized. OSSEOUS STRUCTURES: No definite acute findings. The sacrum demonstrates heterogeneous hypodensity and there is scattered hyperdensity throughout muc h of the skeletal system, suggesting ankylosing changes. BOWEL: No bowel obstruction. No focal inflammatory process. Excessive stool seen throughout the colo n. OTHER: No acute vascular findings. IMPRESSION: 1. CONSTIPATION. 2. LEFT LOWER LOBE BRONCHOPNEUMONIA.
[2019-11-03] MEDS ORDERED: AZITHROMYCIN 500 MG TAB PO STA (21:15)
[2019-11-03] MEDS ORDERED: DOCUSATE 100 MG CAP PO STA (21:16)
[2019-11-03 21:38] VITALS: BP 138/71; PULSE 105; RESP 18; TEMP 97.5
== END 2019-11-03 21:48 | disposition home or self-care (01) ==
LOC: EC 15:36
DX: K59.00 Constipation, unspecified (principal); H35.30 Unspecified macular degeneration; I10 Essential (primary) hypertension; M10.9 Gout, unspecified; M19.90 Unspecified osteoarthritis, unspecified site; Z79.899 Other long term (current) drug therapy; Z85.828 Personal history of other malignant neoplasm of skin; Z87.19 Personal history of other diseases of the digestive system; Z95.5 Presence of coronary angioplasty implant and graft; Z90.49 Acquired absence of other specified parts of digestive tract; Z87.891 Personal history of nicotine dependence
CPT/HCPCS: 36415; 80053; 82150; 83690; 84484; 85025; 81001; 74018; 74177; 99284; Q9967